=== PATIENT | female | born 1945 | race Caucasian/White ===

== ENCOUNTER 2017-01-15 12:48 | Emergency (ER) | payer MEDICARE ==
[~2017-01-15] VITALS: Ht 167.6 cm; Wt 72.1 kg
[~2017-01-15 12:48] MED LIST: AMLO10TA2 PO; ASPI81TA50 PO; COLE3.754 PO; METO25TA4 PO; NITR0.4T SL; OMEP40CA5 PO; POLY2500 MC; SUCR1ORA PO
[2017-01-15] MEDS ORDERED: DIAZEPAM 10 MG/2 ML DISP.SYRIN. IV ONE (13:45)
[2017-01-15] MEDS ORDERED: FENTANYL PF 100 MCG/2 ML VIAL. IV ONE (13:45)
[2017-01-15 13:47] LABS: BASO % 0 % (0-3); EOS # 0.4 x10^3/uL (0.0-0.7); EOS % 3 % (0-3); HEMATOCRIT 44.4 % (36.0-47.0); HEMOGLOBIN 14.8 g/dL (12.0-15.5); LYMPH # 4.3 x10^3/uL (1.0-4.8); LYMPH % 36 % (24-48); MEAN CORPUSCULAR HEMOGLOBIN 32 pg (25-35); MEAN CORPUSCULAR HGB CONC 33 g/dL (31-37); MEAN CORPUSCULAR VOLUME 95 fL (79-100); MONO # 0.9 x10^3/uL (0.0-1.1); MONO % 8 % (0-9); NEUT # 6.2 x10^3uL (1.8-7.7); NEUT % 53 % (31-73); PLATELET COUNT 331 x10^3/uL (140-400); RED BLOOD COUNT 4.67 x10^6/uL (3.50-5.40); RED CELL DISTRIBUTION WIDTH 12.8 % (11.5-14.5); WHITE BLOOD COUNT 11.8 x10^3/uL (4.0-11.0)
[2017-01-15 14:01] LABS: POTASSIUM ISTAT 3.1 mmol/L (3.5-5.0)
[2017-01-15] MEDS ORDERED: CLON0.5T3 PO (14:19)
[2017-01-15] MEDS ORDERED: LIDO700A4 TP (14:19)
[2017-01-15] MEDS ORDERED: POTASSIUM CHLORIDE 20 MEQ TABLET.ER. PO ONE (14:30)
--- NOTE | 2017-01-15 14:32 | ED.ADGEN ---
Past History Past Medical History: Anxiety, High Cholesterol, Hypertension, Other Past Surgical History: Appendectomy, Hysterectomy Alcohol Use: None Drug Use: None Adult General Chief Complaint Chief Complaint back pain, hip pain, tremors HPI HPI Patient is a 71 year old female who presents with increasing chronic back and hip pain with uncontrollable tremors of extremities since last night. Pt reports the symptoms started after taking percocet for her increased chronic pain. Pt Normally "doesn't like to" take the narcotic pain meds. She has known DJD and bulging discs. She had EMG studies by Dr. Villegas last week, MRIs of spine in November. See's pain management, had doctor appointment at 2pm but said she couldn't wait and came to ED. She had a similar episode of tremors some time ago after taking Tramadol. Pain is reportedly the same pain, but just worsened from baseline. No new falls or trauma Review of Systems Review of Systems Constitutional: Denies fever or chills [] Eyes: Denies change in visual acuity, redness, or eye pain [] HENT: Denies nasal congestion or sore throat [] Respiratory: Denies cough or shortness of breath [] Cardiovascular: No additional information not addressed in HPI [] GI: Denies abdominal pain, nausea, vomiting, bloody stools or diarrhea [] : Denies dysuria or hematuria [] Musculoskeletal: per hpi Integument: Denies rash or skin lesions [] Neurologic: Denies headache, focal weakness or sensory changes , reports moving tremors Endocrine: Denies polyuria or polydipsia [] Current Medications Current Medications Current Medications Medications (Trade) Dose Ordered Sig/Gena Start Time Stop Time Status Last Admin Dose Admin Diazepam (Valium) 5 mg 1X ONCE 01/15/17 13:45 01/15/17 13:46 DC 01/15/17 13:38 5 MG Fentanyl Citrate (Fentanyl 2ml Vial) 50 mcg 1X ONCE 01/15/17 13:45 01/15/17 13:46 DC 01/15/17 13:38 50 MCG Potassium Chloride (Klor-Con) 40 meq 1X ONCE 01/15/17 14:30 01/15/17 14:32 DC 01/15/17 15:16 40 MEQ Allergies Allergies Allergies Coded Allergies Type Severity Reaction Last Updated Verified morphine Allergy Intermediate Rash 11/22/15 Yes Physical Exam Physical Exam Constitutional: Well developed, well nourished, very anxious, intermittent rhythmic movements of upper extremities, R>L, easily distractable and it stops. HENT: Normocephalic, atraumatic, bilateral external ears normal, oropharynx moist, no oral exudates, nose normal. [] Eyes: PERRLA, EOMI, conjunctiva normal, no discharge. [] Neck: Normal range of motion, no tenderness, supple, no stridor. [] Cardiovascular:Heart rate regular with regular rhythm Lungs & Thorax: Bilateral breath sounds clear to auscultation, no wheeze Abdomen: Bowel sounds normal, soft, no tenderness, no masses, no pulsatile masses. [] Skin: Warm, dry, no erythema, no rash. [] Back: No focal tenderness no erythema or fluctance, no increased warmth Extremities: ttp in R hip, no cyanosis, no clubbing, ROM intact, no edema. remaining extremities nontender, nondeformed. Neurologic: Alert and oriented X 3, normal motor function, normal sensory function, no focal deficits noted, cranial nerves II-XII intact, pt able to lift both arms and hold steady for 10 seconds, unable to lift either leg off the bed. Normal sensation in all distal extremities. Psychologic: anxious, cooperative Current Patient Data Vital Signs Vital Signs Date Time Temp Pulse Resp B/P Pulse Ox O2 Delivery O2 Flow Rate FiO2 01/15/17 14:39 84 18 153/82 93 Room Air 01/15/17 13:04 98.0 Lab Results Laboratory Tests Test 01/15/17 13:30 01/15/17 13:45 White Blood Count 11.8x10^3/uL (4.0-11.0) H Red Blood Count 4.67x10^6/uL (3.50-5.40) Hemoglobin 14.8g/dL (12.0-15.5) Hematocrit 44.4% (36.0-47.0) Mean Corpuscular Volume 95fL (79-100) Mean Corpuscular Hemoglobin 32pg (25-35) Mean Corpuscular Hemoglobin Concent 33g/dL (31-37) Red Cell Distribution Width 12.8% (11.5-14.5) Platelet Count 331x10^3/uL (140-400) Neutrophils (%) (Auto) 53% (31-73) Lymphocytes (%) (Auto) 36% (24-48) Monocytes (%) (Auto) 8% (0-9) Eosinophils (%) (Auto) 3% (0-3) Basophils (%) (Auto) 0% (0-3) Neutrophils # (Auto) 6.2x10^3uL (1.8-7.7) Lymphocytes # (Auto) 4.3x10^3/uL (1.0-4.8) Monocytes # (Auto) 0.9x10^3/uL (0.0-1.1) Eosinophils # (Auto) 0.4x10^3/uL (0.0-0.7) Basophils # (Auto) 0.0x10^3/uL (0.0-0.2) Magnesium Level 1.9mg/dL (1.8-2.4) POC Hemoglobin 15.0gm/dL POC Hematocrit 44% POC Sodium 142mmol/L (135-145) POC Potassium 3.1mmol/L (3.5-5.0) L POC Chloride 101mmol/L (98-110) POC Total CO2 21mmol/L (23-32) L Anion Gap 23mmol/L (6-14) H POC Blood Urea Nitrogen 16mg/dL (8-26) POC Creatinine 1.0mg/dL (0.5-1.4) Glucose Level 113mg/dL (60-99) H POC Ionized Calcium (Skylar) 1.15mmol/L (1.13-1.32) EKG EKG [] Radiology/Procedures Radiology/Procedures reviewed past radiograph results[] Course & Med Decision Making Course & Med Decision Making Pertinent Labs and Imaging studies reviewed. (See chart for details) Pt given IV valium and fentyl with significant resolve of her tremors and improvement of pain. I contacted Dr. Walker for november MRI results, no severe stenosis reports, mild stenosis of L4-5, multiple areas of DJD and bulging discs. He explained that she gets ativan and percocet monthly,but takes little of the percocet for her pain. H/o not tolerating tramadol and hydrocodone in the past. I contacted Dr. Villegas, who stated the EMG was negative and symptoms are consistent with functional movement disorder. Recommends clonazepam and f/u with pain doctor. Pt has f/u in February with pain doc. I recommended Lidoderm patches in the area with the most pain, clonazepan , NOT to take this along with ativan (which she has not been taking). Return precautions given and pt voiced improvement. 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 CHIVO CLOUD MD Jan 15, 2017 14:32
[2017-01-15 14:39] VITALS: BP 153/82
== END 2017-01-15 14:35 | disposition home or self-care (01) ==
LOC: ER 12:48
DX: G25.89 Other specified extrapyramidal and movement disorders (principal); M17.11 Unilateral primary osteoarthritis, right knee; M47.9 Spondylosis, unspecified; E78.00 Pure hypercholesterolemia, unspecified; F41.9 Anxiety disorder, unspecified; G89.29 Other chronic pain; I10 Essential (primary) hypertension; Z88.5 Allergy status to narcotic agent
CPT/HCPCS: 36415; 80047; 83735; 85027; 96374; 96375; 99284; J3010

== ENCOUNTER → 2017-05-03 | Outpatient (CLI) | payer MEDICARE ==
[~2017-05-03] MED LIST changes: +CLON0.5T3 PO; +COLE3.753 PO; -COLE3.754 PO; +LIDO700A4 TP; -SUCR1ORA PO; +SUCR1ORA11 PO
--- NOTE | 2017-05-04 14:24 | RAD ---
DATE: 05/03/2017 EXAM: MAMMO NONI SCREENING BILATERAL HISTORY: Routine screening COMPARISON: 04/30/2016 This study was interpreted with the benefit of Computerized Aided Detection (CAD). The breast parenchyma shows scattered fibroglandular densities. Breast parenchyma level B. FINDINGS: 2-D and 3-D tomosynthesis imaging was performed in CC and MLO projections. No new or enlarging breast densities are seen. Benign type calcifications are again noted. No suspicious microcalcifications have developed. IMPRESSION: Stable mammograms without evidence of malignancy. BI-RADS CATEGORY: 2 BENIGN FINDING(S) RECOMMENDED FOLLOW-UP: 12M 12 MONTH FOLLOW-UP PQRS compliance statement: Patient information was entered into a reminder system with a target due date for the next mammogram. Mammography is a sensitive method for finding small breast cancers, but it does not detect them all and is not a substitute for careful clinical examination. A negative mammogram does not negate a clinically suspicious finding and should not result in delay in biopsying a clinically suspicious abnormality. "Our facility is accredited by the [employer] Mammography Program."
== END | disposition home or self-care (01) ==
LOC: MAMMO 13:15
PROVIDERS: ATTEND Family Medicine
DX: Z12.31 Encounter for screening mammogram for malignant neoplasm of breast (principal)
CPT/HCPCS: 77063; G0202; 77067

== ENCOUNTER → 2018-02-02 | Outpatient (CLI) | payer MEDICARE ==
[~2018-02-02] MED LIST changes: +BUPIVACAINE MPF 0.5% 30 ML VIAL. ONE; +LIDOCAINE 1% PF 30 ML VIAL. ONE; +methylPREDNISolone ACETATE 80 MG/ML VIAL. ONE
== END | disposition home or self-care (01) ==
LOC: SURG 14:19
PROVIDERS: ATTEND Anesthesiology Pain Medicine
DX: M47.816 Spondylosis without myelopathy or radiculopathy, lumbar region (principal); Z88.5 Allergy status to narcotic agent; Z72.89 Other problems related to lifestyle; I10 Essential (primary) hypertension; M19.90 Unspecified osteoarthritis, unspecified site; Z90.49 Acquired absence of other specified parts of digestive tract; Z98.890 Other specified postprocedural states; Z90.710 Acquired absence of both cervix and uterus; Z96.642 Presence of left artificial hip joint; K21.9 Gastro-esophageal reflux disease without esophagitis
CPT/HCPCS: 64493; 64494; J1040; J2001; J3490

== ENCOUNTER 2018-06-02 16:57 | Emergency (ER) | payer MEDICARE ==
[~2018-06-02] VITALS: Ht 165.1 cm; Wt 78.9 kg
[~2018-06-02 16:57] MED LIST changes: -BUPIVACAINE MPF 0.5% 30 ML VIAL. ONE; +CLON0.5T11 PO; -CLON0.5T3 PO; -LIDOCAINE 1% PF 30 ML VIAL. ONE; -methylPREDNISolone ACETATE 80 MG/ML VIAL. ONE
[2018-06-02] MEDS ORDERED: HALOPERIDOL LACT 5 MG/ML VIAL. IM ONE (17:15)
[2018-06-02] MEDS ORDERED: LORazepam 2 MG/ML VIAL IV ONE (17:15)
[2018-06-02] MEDS ORDERED: HALOPERIDOL LACT 5 MG/ML VIAL. ONE (17:16)
[2018-06-02] MEDS ORDERED: LORazepam 2 MG/ML VIAL ONE (17:16)
--- NOTE | 2018-06-02 17:29 | PHYS DOC ---
Past History Past Medical History: Anxiety, High Cholesterol, Hypertension, Other Past Surgical History: Appendectomy, Hysterectomy Alcohol Use: None Drug Use: None Adult General Chief Complaint Chief Complaint: shaking HPI HPI 72-year-old female presenting the emergency department after having a shaking sensation for the past 2 hours. They report this as seizure activity. Upon triage the patient is awake and alert. She responds verbally and answers questions while shaking generalized. She follows commands. She has been worked up for this condition over the past 2 weeks in clinic and has seen Dr. Abdi wilde without any obvious cause for the patient's shaking. She has had medications changed and is currently awaiting a medication review by Dr. Walker. She had a history of a CT 2 weeks ago which was reportedly normal. She denies any fevers chills nausea vomiting. She denies any pain in her chest or abdomen. Review of Systems Review of Systems Review of systems is negative for chest pain shortness of breath abdominal pain nausea vomiting. She denies numbness weakness or tingling in her extremities. She denies facial droop, slurred speech or difficulty walking. All other systems were reviewed and found to be within normal limits, except as documented in this note. Current Medications Current Medications Current Medications Medications (Trade) Dose Ordered Sig/Gena Start Time Stop Time Status Last Admin Dose Admin Haloperidol Lactate (Haldol) 5 mg STK-MED ONCE 06/02/18 17:16 06/02/18 17:17 DC Lorazepam (Ativan) 2 mg STK-MED ONCE 06/02/18 17:16 06/02/18 17:19 DC Allergies Allergies Allergies Coded Allergies Type Severity Reaction Last Updated Verified morphine Allergy Intermediate Rash 11/22/15 Yes Physical Exam Physical Exam Constitutional: Well developed, well nourished, no acute distress, non-toxic appearance. [] HENT: Normocephalic, atraumatic, bilateral external ears normal, oropharynx moist, no oral exudates, nose normal. [] Eyes: PERRLA, EOMI, conjunctiva normal, no discharge. Neck: Normal range of motion, no tenderness, supple, no stridor. [] Cardiovascular:Heart rate regular rhythm, no murmur Lungs & Thorax: Bilateral breath sounds clear to auscultation [] Abdomen: Bowel sounds normal, soft, no tenderness, no masses, no pulsatile masses. Skin: Warm, dry, no erythema, no rash. [] Back: No tenderness, no CVA tenderness. [] Extremities: No tenderness, no cyanosis, no clubbing, ROM intact, no edema. [] Neurologic: Mental status: Awake oriented and alert x3 Cranial nerves: Extraocular movements intact, eyebrows carl bilaterally, smile symmetric, uvula elevation nl, shoulder shrug intact bilaterally, tongue protrusion normal DTRs: 2+ Sensation: equal and normal in all extremities. pt is observed to voluntarily stop shaking when answering questing. She follow commands and answers questions appropriately. Strength: 5/5 in upper and lower extremities bilaterally Psychologic: Affect normal, judgement normal, mood normal. EKG EKG [] Radiology/Procedures Radiology/Procedures [] Course & Med Decision Making Course & Med Decision Making Pertinent Labs and Imaging studies reviewed. (See chart for details) 72-year-old female presenting to the emergency department today after having these shaking episodes while maintaining fully alert level of consciousness and able to answer questions. Vital signs, she is afebrile. Heart rate is mildly elevated in the 100. She denies any pain. Neurologic exam shows good strength in her upper and lower extremities with this symmetric smile. Speech is clear. Pupils are equal and reactive without any cranial nerve defects. We will give the patient a small dose of Haldol and Ativan to attempt to help calm down her jerking motions. Head CT ordered along with blood work. Patient was signed out at 6 PM. Pending tests include blood work and head CT. Patient signed out to Dr. Cervantes with plan to follow up on imaging and blood work and likely admit the patient to [facility] for neurology consultation. Dragon Disclaimer Dragon Disclaimer This electronic medical record was generated, in whole or in part, using a voice recognition dictation system. Departure Departure: Impression: Primary Impression: Episode of shaking Referrals: BRENDA WALKER MD (PCP) SASCHA KAMARA MD Jun 02, 2018 17:29
[2018-06-02 17:54] LABS: BASO # 0.1 x10^3/uL (0.0-0.2); BASO % 0 % (0-3); EOS # 0.5 x10^3/uL (0.0-0.7); EOS % 4 % (0-3); HEMATOCRIT 38.5 % (36.0-47.0); HEMOGLOBIN 13.1 g/dL (12.0-15.5); LYMPH # 3.8 x10^3/uL (1.0-4.8); LYMPH % 28 % (24-48); MEAN CORPUSCULAR HEMOGLOBIN 33 pg (25-35); MEAN CORPUSCULAR HGB CONC 34 g/dL (31-37); MEAN CORPUSCULAR VOLUME 96 fL (79-100); MONO # 1.1 x10^3/uL (0.0-1.1); MONO % 9 % (0-9); NEUT # 7.9 x10^3uL (1.8-7.7); NEUT % 60 % (31-73); PLATELET COUNT 350 x10^3/uL (140-400); RED BLOOD COUNT 4.01 x10^6/uL (3.50-5.40); RED CELL DISTRIBUTION WIDTH 13.5 % (11.5-14.5); WHITE BLOOD COUNT 13.4 x10^3/uL (4.0-11.0)
[2018-06-02 18:02] LABS: ALBUMIN 3.9 g/dL (3.4-5.0); ALBUMIN/GLOBULIN RATIO 1.3 (1.0-1.7); CREATININE 1.3 mg/dL (0.6-1.0); GFR 40.2; POTASSIUM 4.2 mmol/L (3.5-5.1); TOTAL BILIRUBIN 0.3 mg/dL (0.2-1.0)
--- NOTE | 2018-06-02 18:21 | RAD ---
PQRS Compliance statement: One or more of the following individualized dose reduction techniques were utilized for this examination: 1. Automated exposure control. 2. Adjustment of the mA and/or kV according to patient size. 3. Use of iterative reconstruction technique. Indication:JERKING OF EXTREMITIES, UNCONTROLLED PER PATIENT TECHNIQUE: CT head without IV contrast COMPARISON:None FINDINGS: No pathologic extra-axial or intra-axial fluid collection. The ventricles and basal cisterns are within normal limits. No acute intracranial bleed. No focal loss of samayoa-white differentiation. Orbits within normal limits. No acute calvarial fractures. Visualized paranasal sinuses and mastoid air cells are clear. IMPRESSION: No acute intracranial process. If concern for acute ischemic stroke is high, please consider MRI brain. Critical findings were identified on 06/02/2018 6:12 PM, read back and verified with [facility] staff on 06/02/2018 6:[address] Osmani Craig DO. Electronically signed by: Osmani Craig DO (06/02/2018 6:18 PM) [facility]
[2018-06-02 21:09] LABS: AMPHETAMINE/METHAMPHETAMINE NEG (NEG); BARBITURATES NEG (NEG); BENZODIAZEPINES NEG (NEG); CANNABINOIDS POS (NEG); COCAINE NEG (NEG); METHADONE NEG (NEG); OPIATES NEG (NEG); PHENCYCLIDINE NEG (NEG)
[2018-06-02 21:59] VITALS: BP 100/51
== END 2018-06-02 22:11 | disposition short-term general hospital (02) ==
LOC: ER 16:57
DX: R25.1 Tremor, unspecified (principal); F41.9 Anxiety disorder, unspecified; E78.00 Pure hypercholesterolemia, unspecified; I10 Essential (primary) hypertension; Z88.5 Allergy status to narcotic agent
CPT/HCPCS: 36415; 70450; 80053; 80307; 85025; 96372; 96374; 99285; J1630; J2060; P9612; G0479

== ENCOUNTER → 2018-08-16 | Outpatient (CLI) | payer MEDICARE ==
[~2018-08-16] MED LIST changes: -AMLO10TA2 PO; +AMLO10TA6 PO
--- NOTE | 2018-08-17 09:22 | RAD ---
DATE: 08/16/2018 EXAM: DIGITAL SCREEN BILAT W/CAD HISTORY: Routine screening COMPARISON: 05/03/2017 This study was interpreted with the benefit of Computerized Aided Detection (CAD). Breast Density: SCATTERED The breast parenchyma shows scattered fibroglandular densities. Breast parenchyma level B. FINDINGS: No new or enlarging breast densities are seen. Benign type calcification is again noted. No suspicious microcalcifications have developed. IMPRESSION: Stable mammograms without evidence of malignancy. BI-RADS CATEGORY: 2 BENIGN FINDING(S) RECOMMENDED FOLLOW-UP: 12M 12 MONTH FOLLOW-UP PQRS compliance statement: Patient information was entered into a reminder system with a target due date for the next mammogram. Mammography is a sensitive method for finding small breast cancers, but it does not detect them all and is not a substitute for careful clinical examination. A negative mammogram does not negate a clinically suspicious finding and should not result in delay in biopsying a clinically suspicious abnormality. "Our facility is accredited by the [employer] Mammography Program."
== END | disposition home or self-care (01) ==
LOC: MAMMO 10:38
PROVIDERS: ATTEND Family Medicine
DX: Z12.31 Encounter for screening mammogram for malignant neoplasm of breast (principal)
CPT/HCPCS: 77067

== ENCOUNTER 2018-10-16 16:18 | Emergency (ER) | payer MEDICARE ==
[2018-10-16 16:32] VITALS: BP 127/78
[2018-10-16] MEDS ORDERED: oxyCODONE/APAP 5/325 1 TAB TABLET ONE (17:00)
[2018-10-16] MEDS ORDERED: oxyCODONE/APAP 5/325 1 TAB TABLET PO ONE (17:00)
--- NOTE | 2018-10-16 17:09 | PHYS DOC ---
Past History Past Medical History: Anxiety, Constipation, Depression, GERD, High Cholesterol , Hypertension Past Surgical History: Cholecystectomy, Hip Replacement, Hysterectomy, Knee Replacement Alcohol Use: None Drug Use: None Adult General Chief Complaint Chief Complaint: MULTIPLE TRAUMA/FALL HPI HPI Patient is a 72 year old female who presents with complaining of a fall at the her tub this morning after she lost her balance and hit her left lower rib against the handlebar without head injury or loss of consciousness. She complaining of pain in left side of chest since this morning that getting worse with movement and taking deep breaths. Patient states she cannot take a deep breath because of the pain but denies shortness of breath, fever and chills, cough and congestion. Review of Systems Review of Systems Constitutional: Denies fever or chills [] Eyes: Denies change in visual acuity, redness, or eye pain [] HENT: Denies nasal congestion or sore throat [] Respiratory: Denies cough or shortness of breath [] Cardiovascular: No additional information not addressed in HPI [] GI: Denies abdominal pain, nausea, vomiting, bloody stools or diarrhea [] : Denies dysuria or hematuria [] Musculoskeletal: Denies back pain or joint pain [] Integument: Denies rash or skin lesions [] Neurologic: Denies headache, focal weakness or sensory changes [] Endocrine: Denies polyuria or polydipsia [] All other systems were reviewed and found to be within normal limits, except as documented in this note. Current Medications Current Medications Current Medications Medications (Trade) Dose Ordered Sig/Gena Start Time Stop Time Status Last Admin Dose Admin Oxycodone/ Acetaminophen (Percocet 5/325) 1 tab STK-MED ONCE 10/16/18 17:00 10/16/18 17:01 DC Allergies Allergies Allergies Coded Allergies Type Severity Reaction Last Updated Verified morphine Allergy Intermediate Rash 11/22/15 Yes Physical Exam Physical Exam Constitutional: Well developed, well nourished, mild distress, non-toxic appearance. [] HENT: Normocephalic, atraumatic Eyes: PERRLA, EOMI, conjunctiva normal, no discharge. [] Neck: Normal range of motion, no tenderness, supple, no stridor. [] Cardiovascular:Heart rate regular rhythm, no murmur [] Lungs & Thorax: Bilateral breath sounds clear to auscultation , left lateral chest wall tenderness without deformity or ecchymosis or contusion or subcutaneous emphysema. Abdomen: Bowel sounds normal, soft, no tenderness, no masses, no pulsatile masses. [] Skin: Warm, dry, no erythema, no rash. [] Back: No tenderness, no CVA tenderness. [] Extremities: No tenderness, no cyanosis, no clubbing, ROM intact, no edema. [] Neurologic: Alert and oriented X 3, normal motor function, normal sensory function, no focal deficits noted. [] Psychologic: Affect normal, judgement normal, mood normal. [] Current Patient Data Vital Signs Vital Signs Date Time Temp Pulse Resp B/P (MAP) Pulse Ox O2 Delivery O2 Flow Rate FiO2 10/16/18 16:32 98.1 87 16 95 Room Air EKG EKG [] Radiology/Procedures Radiology/Procedures [address] [address] IMAGING REPORT Signed PATIENT: JUSTO FRANKLIN ACCOUNT: [id number] : 1945 LOCATION: ER AGE: 72 SEX: F EXAM STATUS: REG ER ORD. PHYSICIAN: KELLY GODOY MD REASON: fall PROCEDURE: RIBS LEFT AND PA CHEST EXAM: Chest and left ribs, 3 views. HISTORY: Pain. COMPARISON: None. FINDINGS: A frontal view of the chest and 3 views of the left ribs are obtained. There is no infiltrate, pleural effusion or pneumothorax. There is bilateral basilar atelectasis. The heart is normal in size. There is slight deformity of the lateral left seventh rib. IMPRESSION: 1. Slight deformity of the lateral left seventh rib. This may be a healed fracture or acute nondisplaced fracture, only seen in a single projection. Correlate for point tenderness in this location. 2. Bilateral lower lobe atelectasis. Electronically signed by: Jocelin Zheng MD (10/16/2018 5:24 PM) [facility] DICTATED AND SIGNED BY: JOCELIN ZHENG MD DATE: 10/16/18 7932 CC: BRENDA SANCHEZ MD; KELLY GODOY MD ~ Course & Med Decision Making Course & Med Decision Making Pertinent Imaging studies reviewed. (See chart for details) Evaluation of patient in ER showed 72-year-old female patient with a fall and injury to his lower chest this morning. X-ray showed nondisplaced fracture of rib #7 in left site. She treated with oxycodone in ER (the only medication the patient is able to take for her pain) and incentive spirometer was provided and patient psychiatric to follow up with her primary care physician. Dragon Disclaimer Dragon Disclaimer This electronic medical record was generated, in whole or in part, using a voice recognition dictation system. Departure Departure: Impression: Primary Impression: Fracture, ribs Additional Impression: Fall at home Disposition: HOME, SELF-CARE (at 1750) Condition: IMPROVED Referrals: BRENDA SANCHEZ MD (PCP) Patient Instructions: Incentive Spirometer, Rib Fracture Additional Instructions: Try to cough and take deep breaths Follow-up with your primary care physician in 2-3 days Return to ER if not getting better Scripts Oxycodone Hcl/Acetaminophen (PERCOCET 5-325 MG TABLET ) 1 Each Tablet 1 TAB PO PRN Q6HRS PRN for PAIN, #20 TAB Prov: KELLY GODOY MD 10/16/18 Problem Qualifiers KELLY GODOY MD Oct 16, 2018 17:09
[2018-10-16] MEDS ORDERED: diphenhydrAMINE HCL 25 MG CAPSULE PO ONE (17:15)
--- NOTE | 2018-10-16 17:28 | RAD ---
EXAM: Chest and left ribs, 3 views. HISTORY: Pain. COMPARISON: None. FINDINGS: A frontal view of the chest and 3 views of the left ribs are obtained. There is no infiltrate, pleural effusion or pneumothorax. There is bilateral basilar atelectasis. The heart is normal in size. There is slight deformity of the lateral left seventh rib. IMPRESSION: 1. Slight deformity of the lateral left seventh rib. This may be a healed fracture or acute nondisplaced fracture, only seen in a single projection. Correlate for point tenderness in this location. 2. Bilateral lower lobe atelectasis. Electronically signed by: Jocelin Rojas MD (10/16/2018 5:24 PM) [facility]
[2018-10-16] MEDS ORDERED: OXYC1TAB15 PO (17:45)
== END 2018-10-16 18:22 | disposition home or self-care (01) ==
LOC: ER 16:18
DX: S22.32XA Fracture of one rib, left side, initial encounter for closed fracture (principal); F41.9 Anxiety disorder, unspecified; F32.9 Major depressive disorder, single episode, unspecified; K21.9 Gastro-esophageal reflux disease without esophagitis; E78.00 Pure hypercholesterolemia, unspecified; Z88.5 Allergy status to narcotic agent; W18.2XXA Fall in (into) shower or empty bathtub, initial encounter; Y93.89 Activity, other specified; Y92.098 Other place in other non-institutional residence as the place of occurrence of the external cause; Y99.8 Other external cause status
CPT/HCPCS: 71101; 99283

== ENCOUNTER → 2019-08-17 | Outpatient (CLI) | payer MEDICARE ==
[~2019-08-17] MED LIST changes: -AMLO10TA6 PO; +AMLO10TA8 PO; -CLON0.5T11 PO; +CLON0.5T4 PO; -NITR0.4T SL; +NITR0.4T24 SL; +OMEP40CA45 PO; -OMEP40CA5 PO; +OXYC1TAB15 PO
--- NOTE | 2019-08-17 16:12 | RAD ---
DATE: 08/17/2019. EXAM: DIGITAL SCREEN BILAT W/CAD. HISTORY: Routine mammographic screening. COMPARISON: 08/16/2018. This study was interpreted with the benefit of Computerized Aided Detection (CAD). FINDINGS: Breast Density: HETERO The breast parenchyma is heterogenously dense, which could reduce sensitivity of mammography. Breast parenchyma level C.. There is a focus of architectural distortion superior to the nipple line on the left MLO view. Its correlate on the CC projection is unclear. See annotations. Scattered and coarse calcifications on the right are unremarkable. There is no suspicious finding on the right. BI-RADS CATEGORY: 0 INCOMPLETE: NEEDS ADDITIONAL IMAGING EVALUATION AND/OR PRIOR MAMMOGRAMS FOR COMPARISON.. RECOMMENDED FOLLOW-UP: ADD ADDITIONAL IMAGING. 1. Proximal compression and sonography of the focus of architectural distortion slightly superiorly on the left. See annotations. PQRS compliance statement: Patient information was entered into a reminder system with a target due date (now) for the next mammogram. Mammography is a sensitive method for finding small breast cancers, but it does not detect them all and is not a substitute for careful clinical examination. A negative mammogram does not negate a clinically suspicious finding and should not result in delay in biopsying a clinically suspicious abnormality. "Our facility is accredited by the [employer] Mammography Program."
== END | disposition home or self-care (01) ==
LOC: MAMMO 10:34
PROVIDERS: ATTEND Family Medicine
DX: Z12.31 Encounter for screening mammogram for malignant neoplasm of breast (principal)
CPT/HCPCS: 77067

== ENCOUNTER → 2019-08-31 | Outpatient (CLI) | payer MEDICARE ==
--- NOTE | 2019-08-31 15:14 | RAD ---
DATE: 08/31/2019. EXAM: DIGITAL DIAGNOSTIC LT, BREAST LEFT. HISTORY: Architectural distortion on mammographic screening. Additional imaging is requested. COMPARISON: 08/17/2019. FINDINGS: Breast Density: HETERO The breast parenchyma is heterogenously dense, which could reduce sensitivity of mammography. Breast parenchyma level C.. The region of concern superior to the left nipple is no longer identified on spot compression. There is no suspicious mammographic finding. On today's sonography, only normal parenchyma is seen. There is no suspicious sonographic finding. BI-RADS CATEGORY: 2 BENIGN FINDING(S). RECOMMENDED FOLLOW-UP: 12M 12 MONTH FOLLOW-UP. PQRS compliance statement: Patient information was entered into a reminder system with a target due date 08/17/2020 for the next mammogram. Mammography is a sensitive method for finding small breast cancers, but it does not detect them all and is not a substitute for careful clinical examination. A negative mammogram does not negate a clinically suspicious finding and should not result in delay in biopsying a clinically suspicious abnormality. "Our facility is accredited by the [employer] Mammography Program."
== END | disposition home or self-care (01) ==
LOC: MAMMO 12:47
PROVIDERS: ATTEND Family Medicine
DX: R92.2 Inconclusive mammogram (principal)
CPT/HCPCS: 76641; 77065

== ENCOUNTER 2019-12-25 16:30 | Inpatient (IN) | payer MEDICARE ==
[~2019-12-25] VITALS: Ht 165.1 cm; Wt 82.4 kg
[~2019-12-25 16:30] MED LIST changes: -SUCR1ORA11 PO; +SUCR1ORA14 PO
[2019-12-25 17:18] LABS: BACTERIA,URINE 0 /HPF (0-FEW); BILIRUBIN,URINE NEG (NEG); CLARITY,URINE CLEAR; COLOR,URINE AMBER; GLUCOSE,URINE NEG (NEG); NITRITE,URINE NEG (NEG); RBC,URINE OCC /HPF (0-2); UROBILINOGEN,URINE 0.2 mg/dL (0.2 mg/dL)
[2019-12-25 17:19] LABS: SQUAMOUS EPITHELIAL CELL,UR MOD /LPF
[2019-12-25] MEDS ORDERED: ONDANSETRON PF 4 MG/2 ML VIAL. IVP ONE (17:30)
[2019-12-25] MEDS ORDERED: IV NORMAL SALINE 1,000ML 1,000 ML IV ONE (17:30)
--- NOTE | 2019-12-25 17:30 | PHYS DOC ---
Past History Past Medical History: Hypertension, Seizure, Other Additional Past Medical Histor: BACK PROBLEMS (DONALDO GUILLERMO DO) Past Surgical History: Appendectomy, Hysterectomy, Tonsillectomy, Other Additional Past Surgical Histo: HIP SURGERY, KNEE SUREGERY (DONALDO GUILLERMO DO) Alcohol Use: None Drug Use: None (DONALDO GUILLERMO DO) Adult General Chief Complaint Chief Complaint: ABDOMINAL PAIN HPI HPI Patient is a 74-year-old female who presents with complaint of left lower quadrant and suprapubic abdominal pain x2 hours that is "not letting up." No medications given prior to arrival. Patient rates her pain at 9/10. She has no history of intra-abdominal pathology and she denies nausea vomiting diarrhea constipation fever or chills. (DONALDO GUILLERMO DO) Review of Systems Review of Systems All other systems were reviewed and found to be within normal limits, except as documented in this note. (DONALDO GUILLERMO DO) Current Medications Current Medications Current Medications Medications (Trade) Dose Ordered Sig/Gena Start Time Stop Time Status Last Admin Dose Admin Fentanyl Citrate (Fentanyl 2ml Vial) 50 mcg 1X ONCE 12/25/19 17:30 12/25/19 17:31 Ondansetron HCl (Zofran) 4 mg 1X ONCE 12/25/19 17:30 12/25/19 17:31 Sodium Chloride 1,000 ml @ 1,000 mls/hr 1X ONCE 12/25/19 17:30 12/25/19 18:29 (DONALDO GUILLERMO DO) Allergies Allergies Allergies Coded Allergies Type Severity Reaction Last Updated Verified morphine Allergy Intermediate Rash 12/25/19 Yes (DONALDO GUILLERMO DO) Physical Exam Physical Exam Constitutional: Well developed, well nourished, no acute distress, non-toxic appearance. [] HENT: Normocephalic, atraumatic, bilateral external ears normal, oropharynx moist, no oral exudates, nose normal. [] Eyes: PERRLA, EOMI, conjunctiva normal, no discharge. [] Neck: Normal range of motion, no tenderness, supple, no stridor. [] Cardiovascular:Heart rate regular rhythm, no murmur [] Lungs & Thorax: Bilateral breath sounds clear to auscultation [] Abdomen: Bowel sounds normal, soft, TTP LLQ, no masses, no pulsatile masses. [] Skin: Warm, dry, no erythema, no rash. [] Back: No tenderness, no CVA tenderness. [] Extremities: No tenderness, no cyanosis, no clubbing, ROM intact, no edema. [] Neurologic: Alert and oriented X 3, normal motor function, normal sensory funct ion, no focal deficits noted. [] Psychologic: Affect normal, judgement normal, mood normal. [] (DONALDO GUILLERMO DO) Current Patient Data Vital Signs Vital Signs Date Time Temp Pulse Resp B/P (MAP) Pulse Ox O2 Delivery O2 Flow Rate FiO2 12/25/19 16:51 98.2 76 20 162/61 (94) 95 Lab Results Laboratory Tests Test 12/25/19 16:50 Urine Collection Type Unknown Urine Color Zoya Urine Clarity Clear Urine pH 5.5 Urine Specific [place] >=1.030 Urine Protein Neg (NEG-TRACE) Urine Glucose (UA) Neg mg/dL (NEG) Urine Ketones (Stick) Trace mg/dL (NEG) Urine Blood Neg (NEG) Urine Nitrite Neg (NEG) Urine Bilirubin Neg (NEG) Urine Urobilinogen Dipstick 0.2 mg/dL (0.2 mg/dL) Urine Leukocyte Esterase Trace (NEG) Urine RBC Occ /HPF (0-2) Urine WBC 1-4 /HPF (0-4) Urine Squamous Epithelial Cells Mod /LPF Urine Bacteria 0 /HPF (0-FEW) Urine Mucus Mod /LPF (DONALDO GUILLERMO DO) EKG EKG [] (DONALDO GUILLERMO DO) Radiology/Procedures Radiology/Procedures [] (DONALDO GUILLERMO DO) Impressions: CT abdomen pelvis with contrast dated 12/25/2019. Comparison made to 01/18/2013. Clinical data indication: Left lower quadrant pain. TECHNIQUE: Contiguous axial imaging of the abdomen and pelvis performed after the administration of intravenous contrast. One or more of the following individualized dose reduction techniques were utilized for this examination: 1. Automated exposure control 2. Adjustment of the mA and/or kV according to patient size 3. Use of iterative reconstruction technique. FINDINGS: Limited images of lung bases show patchy and linear opacity in the left lower lobe and lingula and right middle lobe, likely scar or atelectasis. Heart size is mildly enlarged. No pleural or pericardial effusion. Small hiatal hernia. Liver, spleen, pancreas, adrenal glands and kidneys are unremarkable. No hydronephrosis. The gallbladder is unremarkable. There is a well-circumscribed low-density focus within the inferior left lobe liver consistent with cyst. Partially opacified GI tract normal in caliber and contour. There scattered diverticula throughout the colon. There is a focal area of inflammatory stranding adjacent to the sigmoid colon, without definite extraluminal gas or abscess. GI tract is otherwise normal in caliber and contour. No retroperitoneal or mesenteric adenopathy. Abdominal aorta normal in caliber. Images of pelvis show nondistended urinary bladder. Prostate gland normal in size. No free pelvic fluid or pelvic lymphadenopathy. Bone windows show no acute findings. Mild multilevel spondylosis. Small umbilical hernia containing only fat. IMPRESSION: 1. Findings consistent with acute sigmoid diverticulitis. No localized perforation or abscess at this time. 2. Bibasilar scar or atelectasis. 3. Hiatal hernia. Electronically signed by: Alphonse Austin MD (12/25/2019 7:17 PM) [id number] DICTATED AND SIGNED BY: ALPHONSE AUSTIN MD DATE: 12/25/191916 CC: BRENDA SANCHEZ MD; CAROLYN KEANE DO ~ (CAROLYN KEANE DO) Course & Med Decision Making Course & Med Decision Making Pertinent Labs and Imaging studies reviewed. (See chart for details) Patient seen for left lower quad abdominal pain. Will place an IV and give IV fluids obtain labs urinalysis and abdominal x-ray. Transition care to Dr. Keane at 6:00. (DONALDO GUILLERMO DO) Course & Med Decision Making The patient has sigmoid diverticulitis. I will admit her to the hospital. I spoke with Dr. Swan and he has accepted patient for admission. Rocephin and another milligrams of Flagyl 3 times a day. These have been ordered. The patient is in agreement with admission. (CAROLYN KEANE DO) Dragon Disclaimer Dragon Disclaimer This electronic medical record was generated, in whole or in part, using a voice recognition dictation system. (DONALDO GUILLERMO DO) Departure Departure: Impression: Primary Impression: Diverticulitis Disposition: ADMITTED INPATIENT Admitting Physician: Matthew Swan (CAROLYN KEANE DO) Condition: STABLE Referrals: BRENDA SANCHEZ MD (PCP) DONALDO GUILLERMO DO Dec 25, 2019 17:30 CAROLYN KEANE DO Dec 25, 2019 21:56
[2019-12-25 18:25] LABS: BASO # 0.1 x10^3/uL (0.0-0.2); BASO % 0 % (0-3); EOS # 0.3 x10^3/uL (0.0-0.7); EOS % 1 % (0-3); HEMATOCRIT 41.1 % (36.0-47.0); HEMOGLOBIN 13.9 g/dL (12.0-15.5); LYMPH # 3.7 x10^3/uL (1.0-4.8); LYMPH % 18 % (24-48); MEAN CORPUSCULAR HEMOGLOBIN 34 pg (25-35); MEAN CORPUSCULAR HGB CONC 34 g/dL (31-37); MEAN CORPUSCULAR VOLUME 100 fL (79-100); MONO # 2.1 x10^3/uL (0.0-1.1); MONO % 10 % (0-9); NEUT # 14.4 x10^3uL (1.8-7.7); NEUT % 70 % (31-73); PLATELET COUNT 296 x10^3/uL (140-400); RED BLOOD COUNT 4.12 x10^6/uL (3.50-5.40); RED CELL DISTRIBUTION WIDTH 13.6 % (11.5-14.5); WHITE BLOOD COUNT 20.6 x10^3/uL (4.0-11.0)
--- NOTE | 2019-12-25 18:25 | RAD ---
INDICATION: Left lower quadrant pain COMPARISON: None. IMPRESSION: Abdomen: 3 views obtained. Cardiac mediastinal silhouette near upper limits of normal in size with calcific atherosclerosis. Mild linear opacities left lung base. Could be from atelectasis although early infiltrate could have a similar appearance. Degenerative changes of the spine. Large amount of stool in the left side of the abdomen. Correlate for possible causes such as constipation. Right hip arthroplasty changes. Degenerative changes left hip. Electronically signed by: Charles Bui MD (12/25/2019 6:22 PM) [id number]
[2019-12-25 18:37] LABS: CALCIUM 9.5 mg/dL (8.5-10.1); CREATININE 1.1 mg/dL (0.6-1.0); GFR 48.4
[2019-12-25 18:43] LABS: ALBUMIN 4.1 g/dL (3.4-5.0); ALBUMIN/GLOBULIN RATIO 1.5 (1.0-1.7); TOTAL BILIRUBIN 0.4 mg/dL (0.2-1.0); TOTAL PROTEIN 6.9 g/dL (6.4-8.2)
[2019-12-25] MEDS ORDERED: IOHEXOL 300 MG/ML 75 ML VIAL. IV ONE (19:00)
--- NOTE | 2019-12-25 19:20 | RAD ---
CT abdomen pelvis with contrast dated 12/25/2019. Comparison made to 01/18/2013. Clinical data indication: Left lower quadrant pain. TECHNIQUE: Contiguous axial imaging of the abdomen and pelvis performed after the administration of intravenous contrast. One or more of the following individualized dose reduction techniques were utilized for this examination: 1. Automated exposure control 2. Adjustment of the mA and/or kV according to patient size 3. Use of iterative reconstruction technique. FINDINGS: Limited images of lung bases show patchy and linear opacity in the left lower lobe and lingula and right middle lobe, likely scar or atelectasis. Heart size is mildly enlarged. No pleural or pericardial effusion. Small hiatal hernia. Liver, spleen, pancreas, adrenal glands and kidneys are unremarkable. No hydronephrosis. The gallbladder is unremarkable. There is a well-circumscribed low-density focus within the inferior left lobe liver consistent with cyst. Partially opacified GI tract normal in caliber and contour. There scattered diverticula throughout the colon. There is a focal area of inflammatory stranding adjacent to the sigmoid colon, without definite extraluminal gas or abscess. GI tract is otherwise normal in caliber and contour. No retroperitoneal or mesenteric adenopathy. Abdominal aorta normal in caliber. Images of pelvis show nondistended urinary bladder. Prostate gland normal in size. No free pelvic fluid or pelvic lymphadenopathy. Bone windows show no acute findings. Mild multilevel spondylosis. Small umbilical hernia containing only fat. IMPRESSION: 1. Findings consistent with acute sigmoid diverticulitis. No localized perforation or abscess at this time. 2. Bibasilar scar or atelectasis. 3. Hiatal hernia. Electronically signed by: Alphonse Austin MD (12/25/2019 7:17 PM) [id number]
[2019-12-25] MEDS ORDERED: HYDROmorphone PF 1 MG/ML DISP.SYRIN IV PRN (21:00)
[2019-12-25] MEDS ORDERED: ONDANSETRON PF 4 MG/2 ML VIAL. IVP PRN (21:00)
[2019-12-25] MEDS ORDERED: cefTRIAXone SODIUM 1 GM VIAL ONE (21:03)
[2019-12-25] MEDS ORDERED: IV NORMAL SALINE 50ML 50 ML ONE (21:03)
[2019-12-25 21:31] LABS: % BANDS 1 % (0-9); % EOS 1 % (0-5); % SEGS 72 % (35-66)
[2019-12-25 21:32] LABS: % LYMPHS 17 % (24-48); % MONOS 9 % (0-10)
[2019-12-25 21:33] LABS: ANISOCYTOSIS SLIGHT; PLT ESTIMATE ADEQUATE (ADEQUATE); TEAR DROP CELLS OCC
[2019-12-25] MEDS ORDERED: SIMV20TA18 PO (22:36)
[2019-12-25] MEDS ORDERED: GABA-586 PO (22:36)
[2019-12-25] MEDS ORDERED: SIMV10TA15 PO (22:36)
[2019-12-25] MEDS ORDERED: GABA600T7 PO (22:36)
[2019-12-25] MEDS ORDERED: MIRT15TA PO (22:36)
[2019-12-25] MEDS ORDERED: ESCITALOPRAM OX20 MG PO (22:36)
[2019-12-25] MEDS ORDERED: LORA-254 PO (22:36)
[2019-12-25] MEDS ORDERED: CELE200C PO (22:36)
[2019-12-25 22:42] VITALS: BP 154/70
[2019-12-25] MEDS ORDERED: ACET325T9 PO (22:50)
[2019-12-25] MEDS: SIMVASTATIN 10 MG TABLET PO SCH (23:04)
[2019-12-25] MEDS: ACETAMINOPHEN 325 MG TABLET PO PRN (23:04)
[2019-12-25] MEDS: CELECOXIB 100 MG CAPSULE PO SCH (23:04)
[2019-12-25] MEDS: MIRTAZAPINE 15 MG TABLET PO SCH (23:04)
[2019-12-25] MEDS: LORazepam 1 MG TABLET PO SCH (23:05)
[2019-12-25] MEDS: GABAPENTIN 300 MG CAPSULE. PO SCH (23:05)
[2019-12-25] MEDS: metroNIDAZOLE 500 MG TABLET PO SCH (23:05)
--- NOTE | 2019-12-26 | NUR ---
The patient, JUSTO FRANKLIN, 74 y/o, F admitted by MEGGAN JURADO MD, was given written information regarding hospital policies, unit procedures and contact persons. Pt accompanied unto the unit by EMS personnel and nursing supervisor audit clerks via [facility]. Pt able to transfer self from gurney to bed independently. Pt reports that the abdominal pain start on the left lower side the started to move across. Pt reports that she is in so much pain that she has had multiple seizures in the ED. Pt seen hitting the bed with her hands, shaking her legs. Pt states, "See i am having one now due to the pain." Pt remains alert and reaching for the rails on the bed to "hold on". Tech reports a similar event when walking back from the bathroom. Vitals assessed and stable. Pt given regular home medication. Valuables were checked and left in room with pt. Rails padded, bed alarm in place and call light within reach. Pt sleeping at this time.
[2019-12-26 05:11] VITALS: BP 129/72
--- NOTE | 2019-12-26 10:02 | HP ---
ADMIT DATE: 12/25/2019 ATTENDING PHYSICIAN: Meggan Jurado MD CHIEF COMPLAINT: Left lower quadrant pain. HISTORY OF PRESENT ILLNESS: The patient is a very pleasant 74-year-old female who is very active and functional. She has new onset on the day of admission with severe left-sided lower quadrant pain rated 9/10. No bleeding per rectum. She is somewhat nauseated. She had a workup in the ED. The CT abdomen and pelvis showed diverticular disease with inflammation of the colon and the sigmoid region. She had been eating peanuts in the form of M and M with peanuts. PAST MEDICAL HISTORY: Significant for functional movement disorder, diverticulitis, gastroesophageal reflux disease and degenerative arthritis, also underlying depression. CURRENT MEDICINES: Include Tylenol, amlodipine, Celebrex, Lexapro, Neurontin, lorazepam, Remeron, omeprazole, and Zocor. ALLERGIES: She has allergies to MORPHINE, which causes profound nausea. SOCIAL HISTORY: She is a nonsmoker, nondrinker. FAMILY HISTORY: It is sad to say her mom and dad both of lung cancer, father at age 75, mom at age 54. She also has 3 brothers who succumbed to lung cancer. She herself does not smoke. She is . She is currently retired. She is otherwise active and self-sufficient. REVIEW OF SYSTEMS: Significant for localized pain. She has been eating peanuts. She denied any fevers, chills, bloody stools, hematemesis, hematochezia. All other systems were reviewed and determined to be negative. PHYSICAL EXAMINATION: GENERAL: When I saw her, this is a very pleasant female appearing younger than the stated age. VITAL SIGNS: Initial vital signs in the ED showed a blood pressure 154/70, her pulse is 86 and regular, temperature 97.9 degrees Fahrenheit, and oxygen saturation was 94% on room air. HEENT: Head is without trauma. Pupils are reactive. Sclerae are nonicteric. The oropharynx is clear. NECK: Supple, no bruits identified. LUNGS: Otherwise clear to auscultation. CARDIOVASCULAR: Showed regular heart tones. Normal S1, S2. No obvious gallops. Peripheral pulses are palpable and full. ABDOMEN: Minimal tenderness in the left lower quadrant. Minimal rebound tenderness; however, there is some guarding on deep palpation. Bowel sounds are hypoactive. No masses were palpated. EXTREMITIES: Showed no cyanosis or edema. NEUROLOGIC FINDINGS: Focally intact. No deficits. PERTINENT LABORATORY STUDIES AND X-RAY STUDIES: Initial CT of the abdomen and pelvis confirmed diverticulitis. White count is elevated at 20,600, hemoglobin 13.9 g/dL. Electrolytes are within normal range. Nonfasting blood sugar 114, creatinine is 1.1 mg/dL. ASSESSMENT: 1. A 74-year-old female with acute diverticulitis, sigmoid colon. 2. Leukocytosis. 3. Essential hypertension. 4. Underlying depression. 5. Gastroesophageal reflux disease. PLAN: 1. Admit to the inpatient unit. 2. IV hydration. 3. Clear liquid diet for now. 4. Rocephin daily. 5. Flagyl as administered. 6. We will advance diet as tolerated. 7. Pain control. She has tolerated fentanyl in the ED. MEGGAN JURADO MD DR: DELIA/freddie JOB#: [id number] / [id number]
[2019-12-26] MEDS: GABAPENTIN 300 MG CAPSULE. PO SCH ×3 (10:11→20:45)
[2019-12-26] MEDS: PANTOPRAZOLE 40 MG TABLET. PO SCH (10:11)
[2019-12-26] MEDS: LORazepam 1 MG TABLET PO SCH ×2 (10:11→20:46)
[2019-12-26] MEDS: CELECOXIB 100 MG CAPSULE PO SCH ×2 (10:11→20:46)
[2019-12-26] MEDS: amLODIPine BESYLATE 10 MG TABLET PO SCH (10:12)
[2019-12-26] MEDS: metroNIDAZOLE 500 MG TABLET PO SCH ×3 (10:12→20:45)
[2019-12-26] MEDS: CITALOPRAM 20 MG TABLET. PO SCH (10:12)
[2019-12-26 10:48] VITALS: BP 118/63
[2019-12-26 14:47] VITALS: BP 112/55
[2019-12-26] MEDS: diphenhydrAMINE HCL 25 MG CAPSULE PO PRN ×2 (15:09→21:52)
--- NOTE | 2019-12-26 16:25 | NUR ---
Patient feeling a little better today, states that pain located to her abdomen is better and is not having sharp stabbing pain. Continues on IV rocephin and PO flagyl for diverticulitis. Patient able to ambulate with standby assistance, later this afternoon patient went to take a shower and stated to staff that she has broken out into a rash. Stating to staff "this happens all the time, it appears and then will go away but i will need to take something before it gets better." Patient denies SOA or difficulty breathing, reported to Dr Swan that patient appears to have hives. Redness and hive like appearance is located to chest, back and stomach. Orders for PO Benadryl given. Per Physician if hives continue to occur then we will discuss possibility of changing antibiotics.
[2019-12-26 19:28] VITALS: BP 114/61
[2019-12-26] MEDS: ACETAMINOPHEN 325 MG TABLET PO PRN (20:45)
[2019-12-26] MEDS: MIRTAZAPINE 15 MG TABLET PO SCH (20:45)
[2019-12-26] MEDS: LACTOBACILLUS RHAMNOSUS GG 1 CAPSULE. PO SCH (20:46)
[2019-12-26] MEDS: SIMVASTATIN 10 MG TABLET PO SCH (20:46)
--- NOTE | 2019-12-26 22:26 | NUR ---
Pt is noted to have redness to chest, back and upper arms. Pt reports that it is better than what it was earlier today, and it is not really bothering her at this time. Pt reports that this happen 3 or more times a year, but denies knowing what bring these rashes on. Pt educated to notify nurse of worsen of rash, itchy, or SOB occurs.
[2019-12-26 23:09] VITALS: BP 99/59
[2019-12-27 05:00] VITALS: BP 108/58
--- NOTE | 2019-12-27 08:48 | NUR ---
This nurse spoke with physican in regards to patients hives, patient this morning has red hives located to arms, chest, back and stomach. Verbal orders to discontinue antibiotics and start levaquin and solumedrol. Plan is to stay one more day and possibly discharge tomorrow. Patient states she is feeling much better today and denies any abdominal pain at this time.
[2019-12-27] MEDS: CELECOXIB 100 MG CAPSULE PO SCH ×2 (08:59→20:46)
[2019-12-27] MEDS: PANTOPRAZOLE 40 MG TABLET. PO SCH (08:59)
[2019-12-27] MEDS: GABAPENTIN 300 MG CAPSULE. PO SCH ×3 (08:59→20:44)
[2019-12-27] MEDS: LORazepam 1 MG TABLET PO SCH ×2 (08:59→20:45)
[2019-12-27] MEDS: LACTOBACILLUS RHAMNOSUS GG 1 CAPSULE. PO SCH ×2 (08:59→20:44)
[2019-12-27] MEDS: amLODIPine BESYLATE 10 MG TABLET PO SCH (08:59)
[2019-12-27] MEDS ORDERED: methylPREDNISolone SOD SUCC PF 40 MG/ML VIAL. IV ONE (09:00)
[2019-12-27] MEDS: CITALOPRAM 20 MG TABLET. PO SCH (09:00)
--- NOTE | 2019-12-27 10:23 | PN ---
DATE: 12/27/2019 ATTENDING PHYSICIAN: Dr. Jurado. SUBJECTIVE: Abdominal pain is better. She is eating and less nauseated. She has a posterior cervical and neck pain due to tension. She also has a diffuse urticarial rash of her arms and anterior chest, most likely related to her antibiotics. She had been on Rocephin and metronidazole. OBJECTIVE: VITAL SIGNS: Her blood pressure today is 108/58, her pulse is 60 and regular. She is afebrile. Oxygen saturation 93% on room air. HEENT: Head is without trauma. Pupils are reactive. Sclerae nonicteric. Oropharynx clear. NECK: Supple, no bruits identified. LUNGS: Otherwise clear. CARDIOVASCULAR: Showed regular heart tones. No obvious gallops. Peripheral pulses palpable and full. ABDOMEN: Minimal guarding in the left lower quadrant. It is soft to palpation. Bowel sounds are normoactive. There is no guarding. There is no rebound tenderness. EXTREMITIES: Show no cyanosis or edema. SKIN: There is a fine blanching evanescent rash along anterior chest and her both forearms. These do respond the blanching, they are urticarial in nature. ASSESSMENT: 1. Acute diverticulitis, improved. 2. Urticarial lesions systemically related to antibiotics. 3. Musculoskeletal tension headaches. PLAN: 1. I will discontinue her Rocephin and the Flagyl. In lieu of this, I will order Levaquin as a different class of antibiotics. 2. I offered her some modalities to treat her tension headaches. She will agree to a heating pad for now. 3. Diet: Advance as tolerated. 4. Pain control has not been an issue. 5. With symptoms improving, she can be discharged as early as tomorrow with oral antibiotics. We will see how the rash responds to the change in antibiotics, in the meantime Benadryl has helped her in the past. MEGGAN JURADO MD DR: DELIA/freddie JOB#: [id number] / [id number]
[2019-12-27 11:34] VITALS: BP 112/62
[2019-12-27 16:18] VITALS: BP 113/66
[2019-12-27 19:15] VITALS: BP 116/68
[2019-12-27] MEDS: MIRTAZAPINE 15 MG TABLET PO SCH (20:45)
[2019-12-27] MEDS: SIMVASTATIN 10 MG TABLET PO SCH (20:45)
[2019-12-27 22:59] VITALS: BP 106/56
[2019-12-28 05:34] VITALS: BP 122/64
[2019-12-28 08:08] LABS: BASO % 0 % (0-3); EOS % 0 % (0-3); HEMATOCRIT 37.3 % (36.0-47.0); HEMOGLOBIN 12.4 g/dL (12.0-15.5); LYMPH # 2.3 x10^3/uL (1.0-4.8); LYMPH % 13 % (24-48); MEAN CORPUSCULAR HEMOGLOBIN 34 pg (25-35); MEAN CORPUSCULAR HGB CONC 33 g/dL (31-37); MEAN CORPUSCULAR VOLUME 101 fL (79-100); MONO # 0.8 x10^3/uL (0.0-1.1); MONO % 5 % (0-9); NEUT % 83 % (31-73); PLATELET COUNT 274 x10^3/uL (140-400); RED BLOOD COUNT 3.71 x10^6/uL (3.50-5.40); RED CELL DISTRIBUTION WIDTH 13.6 % (11.5-14.5); WHITE BLOOD COUNT 18.1 x10^3/uL (4.0-11.0)
[2019-12-28] MEDS: LORazepam 1 MG TABLET PO SCH (08:09)
[2019-12-28] MEDS: CELECOXIB 100 MG CAPSULE PO SCH (08:09)
[2019-12-28] MEDS: CITALOPRAM 20 MG TABLET. PO SCH (08:09)
[2019-12-28] MEDS: GABAPENTIN 300 MG CAPSULE. PO SCH ×2 (08:09→13:12)
[2019-12-28] MEDS: LACTOBACILLUS RHAMNOSUS GG 1 CAPSULE. PO SCH (08:10)
[2019-12-28] MEDS: amLODIPine BESYLATE 10 MG TABLET PO SCH (08:10)
[2019-12-28] MEDS: PANTOPRAZOLE 40 MG TABLET. PO SCH (08:10)
[2019-12-28 08:29] LABS: ALBUMIN 3.4 g/dL (3.4-5.0); ALBUMIN/GLOBULIN RATIO 0.9 (1.0-1.7); CREATININE 0.8 mg/dL (0.6-1.0); GFR 69.9; POTASSIUM 3.9 mmol/L (3.5-5.1); TOTAL BILIRUBIN 0.4 mg/dL (0.2-1.0)
[2019-12-28] MEDS: diphenhydrAMINE HCL 25 MG CAPSULE PO PRN (10:09)
[2019-12-28 14:29] VITALS: BP 132/85
[2019-12-28] MEDS ORDERED: IOHEXOL 300 MG/ML 75 ML VIAL. IV ONE (15:30)
[2019-12-28 15:45] LABS: % ATYL 2 % (0-0); % LYMPHS 7 % (24-48); % MONOS 4 % (0-10); % SEGS 87 % (35-66); PLT ESTIMATE ADEQUATE (ADEQUATE)
[2019-12-28 15:46] LABS: ANISOCYTOSIS SLIGHT
--- NOTE | 2019-12-28 15:57 | PN ---
DATE: 12/28/2019 SUBJECTIVE: The patient is resting, slightly propped up in bed, complaining that the pain in her left lower quadrant has flared up again. Denied any nausea, vomiting, but did complain of constipation. Denied any chills, rigors or fever. She had tremors worsen whenever she is in pain, although what she describes is not really seizures. She is awake, alert, answering questions appropriately, although she is tremulous. PHYSICAL EXAMINATION: GENERAL: When I examined her, she was pale, but no jaundice, cyanosis or thyromegaly. No jugular venous distention. No lower limb edema. VITAL SIGNS: Her heart rate was 67, blood pressure was 132/85, temperature was 98.3, respiratory rate was 20 and oxygen saturation was 92%. HEAD, EYES, EARS, NOSE AND THROAT: Showed normocephalic, atraumatic. NECK: Supple. HEART: Showed normal first and second heart sounds. No gallop or murmur. CHEST: Showed central trachea, equal bilateral expansion, air entry, vesicular sounds. No crepitation or rhonchi. ABDOMEN: Distended, soft. Tenderness mostly in the left lower quadrant. There is no guarding or rigidity. No organomegaly. All hernial orifices intact. Bowel sounds normal. NEUROLOGIC: She is awake, alert, responding appropriately. All cranial nerves are intact. She moves extremities without difficulty. Her intake was 2065, no output was recorded. LABORATORY DATA: Showed serum sodium 145, potassium 3.9, chloride 108, bicarbonate 25, anion gap of 12, BUN 16, creatinine 0.8, estimated GFR was 70 mL per minute. Her glucose 114, calcium was 9. Total bilirubin, AST, ALT, alkaline phosphatase were normal. Total protein was 7, albumin was 3.4. Her white cell count continued to be high at 18,000, hemoglobin 12.4, hematocrit 37, MCV 101 and platelet count 274,000 with normal manual differential. ASSESSMENT: 1. Acute diverticulitis. 2. Urticarial lesions systemically related to antibiotics. 3. Tension headache. PLAN: Given that there is a flare up of her symptoms today, hr white cell count continues to be elevated, I am concerned that she might have complication including perhaps either an abscess or perforation and therefore I will arrange for her to have a CT scan of the abdomen and pelvis with IV contrast and we will decide on further management accordingly. I will also her on fentanyl 50 mcg IV every 3 hours for pain management. MARIA TERESA MOSQUEDA MD DR: CRIS/freddie JOB#: [id number] / [id number]
--- NOTE | 2019-12-28 16:10 | NUR ---
NSG NOTE; PSEUDOSEIZURE WHILE ROUNDING WITH DR MOSQUEDA, WE WALKED INTO THE PT'S ROOM WHERE HER ARMS AND LEGS WERE SHAKING MILDLY. WE ASKED HER HOW SHE WAS AND SHE STATED SHE WAS IN PAIN AND THAT'S WHY SHE IS HAVING THE SEIZURE. SHE CONTINUED TO TALK TO US THROUGHOUT THE PSEUDOSEIZURE AND STATED SHE HAS THEM WHEN SHE IS IN PAIN. WHEN BRINGING HER PAIN MEDS BACK TO THE ROOM, SHE WAS SITTING UP IN BED, SHAKING HER EXTREMITIES AND HEAD. SHE STATED SHE IS HAVING ANOTHER SEIZURE BECAUSE OF THE PAIN. I GAVE HER FENTANYL IV AND ACCOMP HER TO THE BR. SHE SAID THOUGH SHE IS STILL HAVING THE SEIZURE, SHE CAN WALK TO THE BR WITH STANDBY ASSIST.
--- NOTE | 2019-12-28 16:19 | RAD ---
Exam: CT of abdomen and pelvis with contrast INDICATION: Recurrence of abdominal pain, constipation persistent leukocytosis TECHNIQUE: Sequential axial images through the abdomen and pelvis obtained following the administration of 75 mL of Omni 300 IV contrast. Sagittal and coronal reformatted images were reconstructed from the axial data and reviewed. Comparisons: 12/25/2019 FINDINGS: Heart size is normal. No pericardial effusion. Visualized lung bases are clear. No pleural effusion. Liver, spleen, pancreas, gallbladder and adrenals are unremarkable. Kidneys demonstrate symmetric enhancement. No perinephric inflammation or hydronephrosis. No renal or ureteral calculi are identified. Bladder is decompressed not well evaluated. Uterus is absent. No abnormal adnexal mass. Diverticulosis noted throughout the sigmoid colon with an area of inflammation surrounding the sigmoid colon. There is been development of a small amount of free intra-abdominal air predominantly at the perihepatic and subdiaphragmatic regions. No focal fluid collection is identified. No evidence for obstruction. Abdominal aorta has a normal course and caliber. Abdominal vasculature is patent. No enlarged abdominal lymph nodes are identified. Left hip arthroplasty changes are noted. No suspicious osseous lesions or acute fractures. IMPRESSION: Interval development of a small amount of free intra-abdominal air, likely related to perforation at the area of diverticulitis at the sigmoid colon. No focal fluid collections suggest abscess. Exposure: One or more of the following in the visualized dose reduction techniques were utilized for this examination: 1. Automated exposure control 2. Adjustment of the MA and/or KV according to patient size 3. Use of iterative of reconstructive technique FOR INTERNAL CODING PURPOSES Critical result: Findings discussed with MARIA TERESA MOSQUEDA at 12/28/2019 4:15 PM. RESULT CODE: (C) Electronically signed by: Les Angela MD (12/28/2019 4:16 PM) [id number]
--- NOTE | 2019-12-28 18:17 | NUR ---
NSG NOTE; TRANSFER TO [facility] DR MOSQUEDA SPOKE WITH RADIOLOGIST WHO REPORTED DIVERTICULITIS PERFORATION. DR MOSQUEDA ORDERS TO TRANSFER TO [facility] FOR SURGICAL CONSULT REPORT CALLED TO ANTONY MACHUCA AT 1730 PT TRANSFERRED TO [facility] AT 1810 VIA CART ACCOMP BY EMS PERSONNEL PAPER COPY OF CHART SENT WITH PT
--- NOTE | 2019-12-29 16:36 | DS ---
DATE OF DISCHARGE: 12/28/2019 HOSPITAL COURSE: The patient is a 74-year-old female patient who presented to the Emergency Room of [facility] on 12/24 with a complaint of abdominal pain, mostly in the left lower quadrant and suprapubic area for 2 hours prior to arrival to the Emergency Room, that is not letting up, no medication given. Prior to arrival, the patient rates the pain as about 9/10. She has no history of any intra-abdominal pathology and she denies any nausea, vomiting, diarrhea, constipation, fevers or chills. She was extensively investigated in the Emergency Room and her lab work showed that she has leukocytosis with a white cell count of 20,600. Her chemistry mostly was unremarkable except mildly elevated BUN and creatinine. Urinalysis was unremarkable and she did have a CT scan of the abdomen and pelvis, which basically showed that her finding consistent with acute sigmoid diverticulitis, no localized perforation or abscess at this time. She does have bibasilar scar or atelectasis and hiatal hernia. The patient was admitted, started on IV Rocephin and Flagyl as well as IV fluid and pain management. Unfortunately, the patient has reacted. Apparently, she had urticarial lesion, felt to be a reaction to the antibiotic and therefore her Rocephin and Flagyl were discontinued and therefore, she was started on Levaquin and when I saw her on the day of discharge, the patient was complaining of severe pain that has worsened. Again, she continued to complain of pain mostly in the left lower quadrant and suprapubic area, but denied any nausea or vomiting. Denied any diarrhea. Denied any chills, rigors or fever. Given that the intensity of pain has worsened dramatically, I have arranged for her to have a CT scan of the abdomen and pelvis with IV contrast only and the CT scan report showed that there is interval development of a small amount of free intra-abdominal air, likely related to perforation at the area of diverticulitis at the sigmoid colon. No focal fluid collection to suggest an abscess and I did contact Dr. Choudhury and a decision was made to transfer her to [facility] for further evaluation and perhaps surgical intervention if deemed necessary. She was kept n.p.o., continue the IV fluid, IV antibiotic and pain management. PHYSICAL EXAMINATION: GENERAL: On the day of discharge, she looked well and was clearly in no apparent respiratory distress. No pallor, jaundice, cyanosis or thyromegaly. No jugular venous distension. No lower limb edema. VITAL SIGNS: Her heart rate was 67, blood pressure was 132/85, temperature was 98.5, respiratory rate was 20, and oxygen saturation was 92% on room air. HEAD, EYES, EARS, NOSE AND THROAT: Normocephalic, atraumatic. NECK: Supple. HEART: Showed normal first and second heart sounds. No gallop or murmur. CHEST: Clear to auscultation. No crepitation or rhonchi. ABDOMEN: Distended, soft, with tenderness mostly in the left lower quadrant and suprapubic area. There is no guarding or rigidity. No organomegaly. All hernial orifices intact. Bowel sounds normal. NEUROLOGIC: She was awake, alert, responding appropriately. All cranial nerves intact. EXTREMITIES: She moves extremities without difficulty. LABORATORY DATA: Her lab work showed that her white cell count is slightly down to 18,100, hemoglobin 12.4, hematocrit 37.3, MCV 101 and platelet count of 276,000. Her chemistry showed a serum sodium 145, potassium 3.9, chloride 108, bicarbonate 25, anion gap of 12, BUN 16, creatinine 0.8, estimated GFR was 70 mL per minute. Her glucose 114, calcium was 9. Total bilirubin, AST, ALT, alkaline phosphatase were normal. Total protein 7, albumin was 3.4. DISCHARGE MEDICATIONS: She was transferred to [facility] to continue on fentanyl citrate 50 mcg IV every 3 hours, levofloxacin 750 mg IV daily, lactobacillus rhamnosus 1 capsule twice a day and diphenhydramine 25 mg IV every 6 hours, gabapentin 300 mg at lunch, citalopram hydrobromide 40 mg daily, amlodipine besylate 10 mg once a day, Protonix 40 mg daily and Celebrex 200 mg twice a day, simvastatin 10 mg at bedtime, mirtazapine 15 mg at bedtime, lorazepam 1 mg twice a day, gabapentin 600 mg twice a day and acetaminophen 650 mg every 6 hours. FINAL DISCHARGE DIAGNOSES: 1. Acute diverticulitis with perforation. 2. Hypertension, familial; tremor; gastroesophageal reflux disease and degenerative joint arthritis and depression. AHMED M. JAYLIN, MD DR: CRIS/freddie JOB#: [id number] / [id number]
== END 2019-12-28 18:10 | disposition short-term general hospital (02) | DRG 872 ==
LOC: ER 16:30 → 1 SOUTH 20:25
PROVIDERS: ADMIT Hospitalist; ATTEND Internal Medicine
DX: A41.9 Sepsis, unspecified organism (principal); K57.20 Diverticulitis of large intestine with perforation and abscess without bleeding; J98.11 Atelectasis; K21.9 Gastro-esophageal reflux disease without esophagitis; F32.9 Major depressive disorder, single episode, unspecified; I10 Essential (primary) hypertension; K44.9 Diaphragmatic hernia without obstruction or gangrene; G44.209 Tension-type headache, unspecified, not intractable; M19.90 Unspecified osteoarthritis, unspecified site; M54.2 Cervicalgia; G25.0 Essential tremor; Z90.710 Acquired absence of both cervix and uterus; Z90.49 Acquired absence of other specified parts of digestive tract; Z80.1 Family history of malignant neoplasm of trachea, bronchus and lung; Z88.8 Allergy status to other drugs, medicaments and biological substances
CPT/HCPCS: 36415; 74022; 74177; 80053; 81001; 83690; 84484; 85007; 85025; 87086; 96365; 96375; J0696; J1170; J1956; J2405; J2920; J3010; Q0163; Q9967; 99285-25; J7030

== ENCOUNTER 2020-02-20 09:20 | Emergency (ER) | payer MEDICARE ==
[~2020-02-20] VITALS: Ht 165.1 cm; Wt 72.7 kg
[~2020-02-20 09:20] MED LIST changes: +ACET325T9 PO; +CELE200C PO; +ESCITALOPRAM OX20 MG PO; +GABA-586 PO; +GABA600T7 PO; +LORA-254 PO; +MIRT15TA PO; +SIMV10TA15 PO; +SIMV20TA18 PO
--- NOTE | 2020-02-20 10:12 | PHYS DOC ---
Past History Past Medical History: Hypertension, Seizure, Other Additional Past Medical Histor: BACK PROBLEMS Past Surgical History: Appendectomy, Hysterectomy, Tonsillectomy, Other Additional Past Surgical Histo: HIP SURGERY, KNEE SUREGERY Alcohol Use: None Drug Use: None General Adult EDM: Chief Complaint: BACK PAIN OR INJURY HPI: HPI: Patient is a 74-year-old female presents to the emergency department for eval uation of lower back pain, radiating towards her right hip. The pain also radiates down her right leg. She states the pain began about 5 days ago after she spent the day bent over in her yard. She states she normally has difficulty bending over, and states she spent too long in a bent position, and when she got up she began having the back pain. Movement seems to worsen her pain. She has not had any traumatic injuries. She denies any urinary or fecal incontinence, numbness, weakness, or paresthesias. Other than movement worsening her pain. There are no exacerbating, or alleviating factors to her symptoms. She states that she does occasionally get a prescription for oxycodone from her PCP, for similar back pain, although this pain seems more intense. Her [employer]LE [employer]ORTER history has been reviewed. She does take gabapentin and Ativan regularly. She was recently hospitalized for diverticulitis, notes and imaging, including her abdominal CT, from her hospitalization in December of this year were reviewed. She is not having any new or recurrent abdominal pain. Review of Systems: Review of Systems: Constitutional: Denies fever or chills Eyes: Denies change in visual acuity HENT: Denies nasal congestion or sore throat Respiratory: Denies cough or shortness of breath Cardiovascular: Denies chest pain or edema GI: Denies abdominal pain, nausea, vomiting, bloody stools or diarrhea : Denies dysuria Musculoskeletal: As per HPI Integument: Denies rash Neurologic: Denies headache, focal weakness or sensory changes Endocrine: Denies polyuria or polydipsia Lymphatic: Denies swollen glands Psychiatric: Denies depression or anxiety Heart Score: Risk Factors: Risk Factors: DM, Current or recent (<one month) smoker, HTN, HLP, family history of CAD, obesity. Risk Scores: Score 0 - 3: 2.5% MACE over next 6 weeks - Discharge Home Score 4 - 6: 20.3% MACE over next 6 weeks - Admit for Clinical Observation Score 7 - 10: 72.7% MACE over next 6 weeks - Early Invasive Strategies Allergies: Allergies: Allergies Coded Allergies Type Severity Reaction Last Updated Verified ceftriaxone Allergy Intermediate hives 12/27/19 Yes metronidazole Allergy Intermediate hives 12/27/19 Yes morphine Allergy Intermediate Rash 12/25/19 Yes Physical Exam: PE: PHYSICAL EXAM: CONSTITUTIONAL: Well developed, well nourished HEAD: normocephalic, atraumatic EENT: PERRL, EOMI. Conjunctivae normal color, sclerae non-icteric; moist mucous membranes. NECK: Supple, non-tender; no meningismus. LUNGS: Lungs CTA, breathing even and unlabored. Normal air movement. HEART: Regular rate and rhythm, no murmur CHEST: No deformity; non-tender ABDOMEN: The abdomen is soft, and non-tender, no masses or bruits. EXTREM: Normal ROM; no deformity, no calf tenderness. Normal pulses palpable in all extremities. There is no pedal edema. SKIN: No rash; no diaphoresis NEURO: Alert; normal speech and cognition; CN's grossly intact; strength grossly intact without focal deficit. Patellar reflexes are 2+ bilaterally. There is no foot drop. There is no perineal anesthesia. Distal sensation is normal. BACK: No CVA TTP. There is tenderness palpation diffusely to the right paraspinal musculature, over the lumbar spine, without any focal bony midline tenderness to palpation. Straight leg raise is positive on the right at about 50 degrees. EKG: EKG: [] Radiology/Procedures: Radiology/Procedures: [] Course & Med Decision Making: Course & Med Decision Making 11:40 AM: Pt is feeling better and she is able to ambulate at her baseline. Does have some gait instability but uses a walker at baseline. She feels well enough to go home at this time. I discussed importance of close PCP follow-up and return precautions in detail. She states that her is able to help her ambulate as well and does not feel that she is at high risk for fall given the help with her walker and that she has at home. Amari Disclaimer: Amari Disclaimer: This electronic medical record was generated, in whole or in part, using a voice recognition dictation system. Departure Departure: Impression: Primary Impression: Low back pain Disposition: HOME, SELF-CARE Condition: STABLE Referrals: BRENDA SANCHEZ MD (PCP) Patient Instructions: Back Pain, Adult Scripts Diazepam (VALIUM) 5 Mg Tablet 5 MG PO TID for back pain, #12 TAB Prov: BEHZAD JUNE MD 02/20/20 Oxycodone HCl/Acetaminophen (Percocet 5-325 mg Tablet) 1 Each Tablet 1 TAB PO Q6HRS PRN for PAIN MDD 3 Tablet(s), #20 TAB 0 Refills Prov: BEHZAD JUNE MD 02/20/20 BEHZAD JUNE MD February 20, 2020 10:12
[2020-02-20] MEDS ORDERED: oxyCODONE/APAP 5/325 1 TAB TABLET PO ONE (10:15)
[2020-02-20] MEDS ORDERED: diazePAM 5 MG TABLET PO ONE (10:15)
[2020-02-20] MEDS ORDERED: DIAZ5TAB PO (11:45)
[2020-02-20] MEDS ORDERED: OXYC-325 PO (11:45)
[2020-02-20 12:18] VITALS: BP 149/72
== END 2020-02-20 11:47 | disposition home or self-care (01) ==
LOC: ER 09:20
DX: M54.5 Low back pain (principal); I10 Essential (primary) hypertension; Z90.89 Acquired absence of other organs; Z90.710 Acquired absence of both cervix and uterus; Z88.5 Allergy status to narcotic agent; Z88.8 Allergy status to other drugs, medicaments and biological substances
CPT/HCPCS: 99285

== ENCOUNTER 2020-05-09 07:12 | Emergency (ER) | payer MEDICARE ==
[~2020-05-09] VITALS: Ht 165.1 cm; Wt 72.7 kg
[~2020-05-09 07:12] MED LIST changes: +DIAZ5TAB PO; +OXYC-325 PO
--- NOTE | 2020-05-09 07:39 | PHYS DOC ---
Past History Past Medical History: High Cholesterol, Hypertension, Seizure Additional Past Medical Histor: BACK PROBLEMS Past Surgical History: Appendectomy, Hysterectomy, Tonsillectomy Additional Past Surgical Histo: hand surgery Alcohol Use: Rarely Drug Use: None General Adult EDM: Chief Complaint: abdominal pain HPI: HPI: 74-year-old female presents with left-sided abdominal pain. Patient states that she has had some discomfort here for at least a week. She usually puts an extra pillow under that side when she sleeps and that has helped. Last night, the pain became moderate to severe and she had difficulty sleeping. He continues to hurt quite a bit this morning. It is a deep cramping. Her left abdomen is very tender to touch. She decided she should come in for evaluation. She denies fever or chills. She has had both diarrhea and constipation lately. Patient has a history of diverticulitis in the past. She denies trauma or falls. She has chronic back pain at baseline for which she takes narcotic pain medication. Review of Systems: Review of Systems: Constitutional: Denies fever or chills Eyes: Denies change in visual acuity HENT: Denies nasal congestion or sore throat Respiratory: Denies cough or shortness of breath Cardiovascular: Denies chest pain or edema GI: Left lower quadrant abdominal pain. Denies nausea, vomiting, bloody stools. : Denies dysuria Musculoskeletal: Denies back pain or joint pain Integument: Denies rash Neurologic: Denies headache, focal weakness or sensory changes Endocrine: Denies polyuria or polydipsia Lymphatic: Denies swollen glands Psychiatric: Denies depression or anxiety Heart Score: Risk Factors: Risk Factors: DM, Current or recent (<one month) smoker, HTN, HLP, family history of CAD, obesity. Risk Scores: Score 0 - 3: 2.5% MACE over next 6 weeks - Discharge Home Score 4 - 6: 20.3% MACE over next 6 weeks - Admit for Clinical Observation Score 7 - 10: 72.7% MACE over next 6 weeks - Early Invasive Strategies Allergies: Allergies: Allergies Coded Allergies Type Severity Reaction Last Updated Verified ceftriaxone Allergy Intermediate hives 12/27/19 Yes metronidazole Allergy Intermediate hives 12/27/19 Yes morphine Allergy Intermediate Rash 12/25/19 Yes Physical Exam: PE: Constitutional: Well developed, well nourished, no acute distress, non-toxic appearance. [] HENT: Normocephalic, atraumatic, bilateral external ears normal, oropharynx moist, no oral exudates, nose normal. [] Eyes: PERRLA, EOMI, conjunctiva normal, no discharge. [] Neck: Normal range of motion, no tenderness, supple, no stridor. [] Cardiovascular: Heart rate regular rhythm, no murmur [] Lungs & Thorax: Bilateral breath sounds clear to auscultation [] Abdomen: Bowel sounds normal, soft, LLQ tenderness, no masses, no pulsatile masses. [] Skin: Warm, dry, no erythema, no rash. [] Back: No tenderness, no CVA tenderness. [] Extremities: No tenderness, no cyanosis, no clubbing, ROM intact, no edema. [] Neurologic: Alert and oriented X 3, normal motor function, normal sensory function, no focal deficits noted. [] Psychologic: Affect normal, judgement normal, mood normal. [] EKG: EKG: [] Radiology/Procedures: Radiology/Procedures: [] Impressions: Axial CT of the abdomen and pelvis were obtained after the administration of 60 cc Omnipaque 300. Coronal and sagittal reformats are also available. Exposure: One or more of the following individualized dose reduction techniques were utilized for this examination: 1. Automated exposure control 2. Adjustment of the mA and/or kV according to patient size 3. Use of iterative reconstruction technique Indication: Left lower quadrant pain. Comparison: 12/28/2019. Findings: Stable cardiomegaly. Stable scarring of the left lower lobe parenchyma. The liver, spleen, adrenals, kidneys, gallbladder and pancreas are unremarkable in appearance. The stomach, small and large bowel are nondistended. No evidence pathologic wall thickening. There is sigmoid diverticulosis without diverticulitis. There is substantial dilation or urinary bladder. Left hip arthroplasty limits detailed evaluation of the deep pelvis. The abdominal aorta is tortuous and mildly calcified without aneurysmal dilation or significant stenosis. The portal, superior mesenteric and splenic veins are unremarkable in appearance. No radiologically significant retroperitoneal or mesenteric lymphadenopathy is identified. There is mild degenerative change of the lumbar spine the thoracic team disc at L4-5. IMPRESSION: 1. No acute findings. There is sigmoid diverticulosis without diverticulitis. Electronically signed by: Jd Brewster MD (05/09/2020 9:12 AM) [id number] DICTATED AND SIGNED BY: JD BREWSTER MD DATE: 05/09/20911 CC: BRENDA SANCHEZ MD; CAROLYN KEANE DO ~ Course & Med Decision Making: Course & Med Decision Making Pertinent Labs and Imaging studies reviewed. (See chart for details) The patient's labs are unremarkable. Her CT of the abdomen and pelvis is negative for acute findings. She does have at least a moderate amount of stool throughout the colon. Her discomfort could be related to the stool burden. She is taking narcotic pain medications. I will advised that she take a laxative in addition to her stool softener to try to move more through. Patient does not meet criteria for admission. She is stable for discharge at this time. [] Dragon Disclaimer: Dragon Disclaimer: This electronic medical record was generated, in whole or in part, using a voice recognition dictation system. Departure Departure: Impression: Primary Impression: Abdominal pain Qualified Codes: R10.32 - Left lower quadrant pain Disposition: HOME/RESIDENCE PRIOR TO ADM Condition: STABLE Referrals: BRENDA SANCHEZ MD (PCP) Patient Instructions: Abdominal Pain, [id number], Constipation, Adult, [id number] Justification of Admission: Justification of Admission: Justification of Admission Dx: N/A CAROLYN KEANE DO May 09, 2020 07:39
[2020-05-09 08:16] LABS: BASO % 0 % (0-3); EOS # 0.2 x10^3/uL (0.0-0.7); EOS % 2 % (0-3); HEMATOCRIT 42.3 % (36.0-47.0); HEMOGLOBIN 14.4 g/dL (12.0-15.5); LYMPH # 3.7 x10^3/uL (1.0-4.8); LYMPH % 44 % (24-48); MEAN CORPUSCULAR HEMOGLOBIN 33 pg (25-35); MEAN CORPUSCULAR HGB CONC 34 g/dL (31-37); MEAN CORPUSCULAR VOLUME 97 fL (79-100); MONO # 0.9 x10^3/uL (0.0-1.1); MONO % 10 % (0-9); NEUT # 3.8 x10^3uL (1.8-7.7); NEUT % 44 % (31-73); PLATELET COUNT 280 x10^3/uL (140-400); RED BLOOD COUNT 4.37 x10^6/uL (3.50-5.40); RED CELL DISTRIBUTION WIDTH 14.3 % (11.5-14.5); WHITE BLOOD COUNT 8.6 x10^3/uL (4.0-11.0)
[2020-05-09 08:24] LABS: CALCIUM 9.3 mg/dL (8.5-10.1); CREATININE 1.1 mg/dL (0.6-1.0); GFR 48.4
[2020-05-09 08:30] LABS: ALBUMIN 4.2 g/dL (3.4-5.0); ALBUMIN/GLOBULIN RATIO 1.3 (1.0-1.7); TOTAL BILIRUBIN 0.7 mg/dL (0.2-1.0); TOTAL PROTEIN 7.4 g/dL (6.4-8.2)
[2020-05-09] MEDS: IOHEXOL 300 MG/ML 75 ML VIAL. IV ONE (08:39)
[2020-05-09] MEDS: IV NORMAL SALINE 1,000ML 1,000 ML IV ONE (08:59)
--- NOTE | 2020-05-09 09:15 | RAD ---
Axial CT of the abdomen and pelvis were obtained after the administration of 60 cc Omnipaque 300. Coronal and sagittal reformats are also available. Exposure: One or more of the following individualized dose reduction techniques were utilized for this examination: 1. Automated exposure control 2. Adjustment of the mA and/or kV according to patient size 3. Use of iterative reconstruction technique Indication: Left lower quadrant pain. Comparison: 12/28/2019. Findings: Stable cardiomegaly. Stable scarring of the left lower lobe parenchyma. The liver, spleen, adrenals, kidneys, gallbladder and pancreas are unremarkable in appearance. The stomach, small and large bowel are nondistended. No evidence pathologic wall thickening. There is sigmoid diverticulosis without diverticulitis. There is substantial dilation or urinary bladder. Left hip arthroplasty limits detailed evaluation of the deep pelvis. The abdominal aorta is tortuous and mildly calcified without aneurysmal dilation or significant stenosis. The portal, superior mesenteric and splenic veins are unremarkable in appearance. No radiologically significant retroperitoneal or mesenteric lymphadenopathy is identified. There is mild degenerative change of the lumbar spine the thoracic team disc at L4-5. IMPRESSION: 1. No acute findings. There is sigmoid diverticulosis without diverticulitis. Electronically signed by: Marcellus Mckeon MD (05/09/2020 9:12 AM) [id number]
[2020-05-09 09:32] LABS: BACTERIA,URINE FEW /HPF (0-FEW); BILIRUBIN,URINE NEG (NEG); CLARITY,URINE CLEAR; COLOR,URINE YELLOW; GLUCOSE,URINE NEG (NEG); NITRITE,URINE NEG (NEG); RBC,URINE OCC /HPF (0-2); SQUAMOUS EPITHELIAL CELL,UR FEW /LPF; UROBILINOGEN,URINE 0.2 mg/dL (0.2 mg/dL)
[2020-05-09] MEDS ORDERED: HYDR-3166 PO (09:51)
[2020-05-09] MEDS ORDERED: HYDROcodone/APAP 7.5/325MG 1 TAB TABLET ONE (10:01)
[2020-05-09] MEDS: HYDROcodone/APAP 7.5/325MG 1 TAB TABLET PO ONE (10:03)
[2020-05-09 10:17] VITALS: BP 146/95
[2020-05-09] MEDS ORDERED: OXYC-325 PO (10:31)
== END 2020-05-09 10:32 | disposition home or self-care (01) ==
LOC: ER 07:12
DX: R10.32 Left lower quadrant pain (principal); R19.7 Diarrhea, unspecified; K59.00 Constipation, unspecified; E78.00 Pure hypercholesterolemia, unspecified; I10 Essential (primary) hypertension; Z90.89 Acquired absence of other organs; Z90.710 Acquired absence of both cervix and uterus; Z88.5 Allergy status to narcotic agent; Z88.8 Allergy status to other drugs, medicaments and biological substances
CPT/HCPCS: 36415; 74177; 80053; 81001; 85025; 87086; 96360; 99285; J7030; Q9967

== ENCOUNTER 2020-05-23 08:40 | Emergency (ER) | payer MEDICARE ==
[~2020-05-23] VITALS: Ht 165.1 cm; Wt 75.0 kg
[~2020-05-23 08:40] MED LIST changes: +HYDR-3166 PO
--- NOTE | 2020-05-23 09:15 | PHYS DOC ---
Past History Past Medical History: High Cholesterol, Hypertension, Seizure Additional Past Medical Histor: BACK PROBLEMS Past Surgical History: Appendectomy, Hysterectomy, Tonsillectomy Additional Past Surgical Histo: hand surgery Alcohol Use: Rarely Drug Use: None General Adult EDM: Chief Complaint: MULTIPLE COMPLAINTS HPI: HPI: 74-year-old female past medical history significant for epilepsy, hypertension, hyperlipidemia and diverticulosis, presents to the ED with complaints of bright red bloody bowel movement just prior to arrival-reports scant blood in toilet basin. Patient states last night before bed she started having multiple episodes of nonbloody nonbilious vomiting and loose watery diarrhea with upper abdominal pain. States she woke up in the night with lower cramping abdominal pain and had multiple episodes of loose watery diarrhea. Last colonoscopy was 3 years ago. No history of liver disease, cirrhosis, GI bleed or need for blood transfusion. Known history of hemorrhoids-unsure if internal or external. Currently has no abdominal pain, is concerned for the blood in her stools that started this am. asymptomatic-both had stew for dinner ROS: Denies associated fever, chills, headache, neck stiffness, dyspnea, orthopnea, chest pain, sore throat, cough, constipation, back pain, dysuria, hematuria, melena, hematemesis, leg swelling, anuria or rash. Review of Systems: Review of Systems: Constitutional: Denies fever or chills Eyes: Denies change in visual acuity HENT: Denies nasal congestion or sore throat Respiratory: Denies cough or shortness of breath Cardiovascular: Denies chest pain or edema GI: Denies abdominal pain, nausea, vomiting, bloody stools or diarrhea : Denies dysuria Musculoskeletal: Denies back pain or joint pain Integument: Denies rash Neurologic: Denies headache, focal weakness or sensory changes Endocrine: Denies polyuria or polydipsia Lymphatic: Denies swollen glands Psychiatric: Denies depression or anxiety Allergies: Allergies: Allergies Coded Allergies Type Severity Reaction Last Updated Verified ceftriaxone Allergy Intermediate hives 05/09/20 Yes metronidazole Allergy Intermediate hives 05/09/20 Yes morphine Allergy Intermediate Rash 05/09/20 Yes hydrocodone Allergy Unknown Hives 05/09/20 Yes Physical Exam: PE: Constitutional: Well developed, well nourished, no acute distress, non-toxic ap pearance. [] HENT: Normocephalic, atraumatic, bilateral external ears normal, oropharynx moist, no oral exudates, nose normal. [] Eyes: EOMI, conjunctiva normal, no discharge. [] Neck: Normal range of motion, no tenderness, supple, no stridor. [] Cardiovascular:Heart rate regular rhythm, no murmur [] Lungs & Thorax: Bilateral breath sounds clear to auscultation [] Abdomen: Bowel sounds normal, soft, no tenderness, no masses, no pulsatile masses. [] Skin: Warm, dry, no erythema, no rash. [] not pale Back: No tenderness, no CVA tenderness. [] Extremities: No tenderness, no cyanosis, no clubbing, ROM intact, no edema. [] Neurologic: Alert and oriented X 3, normal motor function, normal sensory function, no focal deficits noted. [] Psychologic: Affect normal, judgement normal, mood normal. [] RECTAL: chaperoned by rn, small non thrombosed hemorrhoid at noon, no brbpr, neela w/no stool/melena/hematochezia - clear digit, pt tolerated exam EKG: EKG: [] Radiology/Procedures: Radiology/Procedures: IMAGING REPORT Signed PATIENT: JUSTO FRANKLIN ACCOUNT: [id number] : 1945 LOCATION: ER AGE: 74 SEX: F EXAM STATUS: REG ER ORD. PHYSICIAN: PATT OLGUIN DO REASON: v/d, bloody diarrhea, lower abdominal pain PROCEDURE: CT ABD PELV W/ IV CONTRST ONLY Examination: CT of the abdomen pelvis with IV contrast HISTORY: History of vomiting, bloody diarrhea COMPARISON: 04/22/2020 TECHNIQUE: Axial CT images of the abdomen pelvis were performed with IV contrast. Coronal and sagittal reformats are performed Exposure: One or more of the following individualized dose reduction techniques were utilized for this examination: 1. Automated exposure control 2. Adjustment of the mA and/or kV according to patient size 3. Use of iterative reconstruction technique. Findings: Linear atelectasis left lower lobe of the lung. No evidence of free air identified in the abdomen. Small 8 mm hypodensity identified. The spleen, adrenals grossly appears unremarkable. The gallbladder is mildly distended. The stomach is mildly distended. The small bowel is nondilated. Feces and gas noted in the colon. Moderate thickened appearance of the wall of the descending colon with surrounding infiltrative fat stranding. Multiple colonic diverticulosis. Bilateral kidneys enhance symmetrically. Urinary bladder is mildly distended. Total left hip arthroplasty changes. Moderate degenerative changes most at L4-L5 vertebral levels with small posterior disc bulge. Impression : 1. Thickened appearance of the wall of the descending colon with surrounding inflammatory fat stranding likely colitis. Electronically signed by: Rigoberto Mauro MD (05/23/2020 10:28 AM) [id number] DICTATED AND SIGNED BY: RIGOBERTO MAURO MD DATE: 05/23/20 1028 CC: BRENDA SANCHEZ MD; PATT OLGUIN DO ~ Course & Med Decision Making: Course & Med Decision Making Pertinent Labs and Imaging studies reviewed. (See chart for details) Concern for vomiting and diarrhea with hemorrhoids and scant hematochezia (not seen on physical exam). Pt is hemodynamically stable with no tachycardia. H&H is 14/43, no signs of anemia. No acute blood loss on physical exam. CT imaging concerning for fat stranding and colitis. Patient has a Flagyl and Rocephin allergy cannot recall her symptoms. No emesis or diarrhea in ed. Will DC home on Augmentin with Zofran. Strict ED return cautions given for recurrent bleeding, severe abdominal pain, weakness or shortness of breath. Encourage urgent GI follow-up. Encouraged urgent outpatient follow-up with PMD and GI. Life- threatening processes were considered but are low suspicion at this time, given history and physical exam. All patient's questions were answered and pt was stable at time of discharge. Differential includes aortic dissection, aortic aneurysm, acute coronary syndrome, surgical abdomen (appendicitis, cholecystitis, ischemic bowel, strangulated hernia, etc), bowel obstruction or volvulus, bladder outlet obstruction, inflammatory bowel disease, peptic ulcer disease, sepsis, diverticular disease, ureterolithiasis, GI bleed, nephrolithiasis, ovarian or testicular torsion, ectopic I spoken with the patient and her caregivers. I explained the patient's condition, diagnoses and treatment plan based on the information available to me at this time. I have answered the patient and her caregiver's questions and addressed any concerns. The patient and her caregivers have a good understanding of patient's diagnosis, condition and treatment plan as can be expected at this point. Vital signs have been stable. Patient's condition is stable and appropriate for discharge from the emergency department. Patient will pursue further outpatient evaluation with primary care physician or other designated or consulting physician as outlined in the discharge instructions. The patient and/or caregivers are agreeable to this plan of care and follow-up instructions have been explained in detail. The patient and/or caregivers have received these instructions in written form and have expressed an understanding of the discharge instructions. The patient and/or caregivers are aware that any significant change of condition or worsening of symptoms should prompt immediate return to this or the closest emergency department or call to 911. Dragon Disclaimer: Dragon Disclaimer: This electronic medical record was generated, in whole or in part, using a voice recognition dictation system. Departure Departure: Impression: Primary Impression: Colitis Additional Impressions: Vomiting and diarrhea Hematochezia Disposition: HOME/RESIDENCE PRIOR TO ADM Condition: STABLE Referrals: BRENDA SANCHEZ MD (PCP) Patient Instructions: Colitis, Diarrhea Scripts Ondansetron Hcl (ZOFRAN) 4 Mg Tablet 1 TAB PO PRN Q6HRS PRN for NAUSEA, #10 TAB Prov: PATT OLGUIN DO 05/23/20 Amoxicillin/Potassium Clav (AUGMENTIN 875-125 TABLET) 1 Each Tablet 1 TAB PO BID for colitis for 10 Days, #20 TAB 0 Refills Prov: PATT OLGUIN DO 05/23/20 Justification of Admission: Justification of Admission: Justification of Admission Dx: N/A PATT OLGUIN DO May 23, 2020 09:15
[2020-05-23 09:16] LABS: BASO % 0 % (0-3); EOS # 0.2 x10^3/uL (0.0-0.7); EOS % 2 % (0-3); HEMATOCRIT 43.5 % (36.0-47.0); HEMOGLOBIN 14.7 g/dL (12.0-15.5); LYMPH # 2.7 x10^3/uL (1.0-4.8); LYMPH % 24 % (24-48); MEAN CORPUSCULAR HEMOGLOBIN 33 pg (25-35); MEAN CORPUSCULAR HGB CONC 34 g/dL (31-37); MEAN CORPUSCULAR VOLUME 98 fL (79-100); MONO # 0.9 x10^3/uL (0.0-1.1); MONO % 8 % (0-9); NEUT # 7.2 x10^3uL (1.8-7.7); NEUT % 66 % (31-73); PLATELET COUNT 270 x10^3/uL (140-400); RED BLOOD COUNT 4.45 x10^6/uL (3.50-5.40); RED CELL DISTRIBUTION WIDTH 14.1 % (11.5-14.5)
[2020-05-23 09:25] VITALS: BP 147/74
[2020-05-23 09:25] LABS: CALCIUM 9.3 mg/dL (8.5-10.1); GFR 54.1; POTASSIUM 3.8 mmol/L (3.5-5.1)
[2020-05-23 09:30] LABS: ALBUMIN 4.3 g/dL (3.4-5.0); ALBUMIN/GLOBULIN RATIO 1.3 (1.0-1.7); TOTAL BILIRUBIN 0.7 mg/dL (0.2-1.0); TOTAL PROTEIN 7.7 g/dL (6.4-8.2)
[2020-05-23] MEDS: IOHEXOL 300 MG/ML 75 ML VIAL. IV ONE (09:39)
--- NOTE | 2020-05-23 10:31 | RAD ---
Examination: CT of the abdomen pelvis with IV contrast HISTORY: History of vomiting, bloody diarrhea COMPARISON: 04/22/2020 TECHNIQUE: Axial CT images of the abdomen pelvis were performed with IV contrast. Coronal and sagittal reformats are performed Exposure: One or more of the following individualized dose reduction techniques were utilized for this examination: 1. Automated exposure control 2. Adjustment of the mA and/or kV according to patient size 3. Use of iterative reconstruction technique. Findings: Linear atelectasis left lower lobe of the lung. No evidence of free air identified in the abdomen. Small 8 mm hypodensity identified. The spleen, adrenals grossly appears unremarkable. The gallbladder is mildly distended. The stomach is mildly distended. The small bowel is nondilated. Feces and gas noted in the colon. Moderate thickened appearance of the wall of the descending colon with surrounding infiltrative fat stranding. Multiple colonic diverticulosis. Bilateral kidneys enhance symmetrically. Urinary bladder is mildly distended. Total left hip arthroplasty changes. Moderate degenerative changes most at L4-L5 vertebral levels with small posterior disc bulge. Impression : 1. Thickened appearance of the wall of the descending colon with surrounding inflammatory fat stranding likely colitis. Electronically signed by: Rigoberto Mauro MD (05/23/2020 10:28 AM) [id number]
[2020-05-23] MEDS ORDERED: ONDA4TAB7 PO (10:42)
[2020-05-23] MEDS ORDERED: AMOX1TAB61 PO (10:42)
== END 2020-05-23 11:00 | disposition home or self-care (01) ==
LOC: ER 08:40
DX: K52.9 Noninfective gastroenteritis and colitis, unspecified (principal); K92.1 Melena; R11.10 Vomiting, unspecified; R19.7 Diarrhea, unspecified; E78.00 Pure hypercholesterolemia, unspecified; I10 Essential (primary) hypertension; Z90.89 Acquired absence of other organs; Z90.710 Acquired absence of both cervix and uterus; Z88.8 Allergy status to other drugs, medicaments and biological substances; Z88.5 Allergy status to narcotic agent
CPT/HCPCS: 36415; 74177; 80053; 85025; 85610; 85730; 99285; Q9967

== ENCOUNTER → 2020-09-02 | Outpatient (CLI) | payer MEDICARE ==
[~2020-09-02] MED LIST changes: +AMLO-187 PO; -AMLO10TA8 PO; +AMOX1TAB61 PO; +MIRT-37 PO; -MIRT15TA PO; +ONDA4TAB7 PO
--- NOTE | 2020-09-02 16:12 | RAD ---
DATE: 09/02/2020 11:10 AM EXAM: DIGITAL SCREEN BILAT W/CAD HISTORY: Screening COMPARISON: 05/03/2017 Bilateral full field craniocaudal and mediolateral oblique images were obtained using digital technique. This study was interpreted with the benefit of Computerized Aided Detection (CAD). FINDINGS: Breast Density: SCATTERED The breast parenchyma shows scattered fibroglandular densities. Breast parenchyma level B No suspicious masses, microcalcifications or architectural distortion is present to suggest malignancy in either breast. The visualized axillae are unremarkable. IMPRESSION: No mammographic evidence of malignancy. BI-RADS CATEGORY: 1 NEGATIVE RECOMMENDED FOLLOW-UP: 12M 12 MONTH FOLLOW-UP Annual screening mammography is recommended, unless clinically indicated sooner based on symptoms or change in physical exam. PQRS compliance statement: Patient information was entered into a reminder system with a target due date for the next mammogram. Mammography is a sensitive method for finding small breast cancers, but it does not detect them all and is not a substitute for careful clinical examination. A negative mammogram does not negate a clinically suspicious finding and should not result in delay in biopsying a clinically suspicious abnormality. "Our facility is accredited by the [employer] Mammography Program."
== END ==
LOC: MAMMO 11:00
PROVIDERS: ATTEND Family Medicine
DX: Z12.31 Encounter for screening mammogram for malignant neoplasm of breast (principal)
CPT/HCPCS: 77067

== ENCOUNTER → 2020-09-26 | Outpatient (CLI) | payer MEDICARE ==
--- NOTE | 2020-09-26 12:24 | RAD ---
EXAM: DUAL ENERGY X-RAY ABSORPTIOMETRY (DEXA). HISTORY: Postmenopausal screening. FINDINGS: The lowest measured T-score is -2.4 in the right femoral neck, based on a bone mineral dens ity of 0.709 g/cm^2. Refer to the worksheets for full detail. In comparison with the prior study of 04/30/2016, average bone mineral density at the lumbar spine elizabeth s changed +3.9%, while the average density at the hips has changed +4.4%. IMPRESSION: Low bone mass. Bone mineral density yields a T-score between -1.0 and -2.5. Fracture risk is increase d. FRAX was not calculated. METHODOLOGY: Dual energy x-ray absorptiometry was performed to measure bone mineral density. The foll owing analysis is based on the 2019 Official Positions of the International Society for Clinical Dens itometry: Measurements of the hips and the average of L1-L4 are preferred. When the spine and/or hip cannot be feasibly measured or interpreted, or in the setting of hyperparathyroidism, distal radial bone minera l density may be measured. The lumbar spine T-score is based on the average bone mineral density of L1-L4. In the setting of art ifact or anatomic abnormality, some lumbar levels may be excluded, and the remaining levels used for calculation. A single lumbar level is not used for diagnosis, and if only a single level is available for assessment, another anatomic site will be used to assign a diagnosis. The hip T-score is based on the bone mineral density measurement of the femoral neck or total proxima l femur of either side, whichever is lowest. Bilateral mean values are not used for diagnosis. The forearm T-score is derived from 33% of the distal radius of the nondominant forearm. For postmenopausal and perimenopausal women, and men age 50 or older, of all ethnic groups, T-scores are calculated through comparison of the current measurement with the NHANES III database standard fo r females aged 20-29 years. The lowest T-score of the evaluated anatomic sites is used to a ssign a diagnosis based on the World Health Organization densitometric classification. In premenopausal females and males younger than age 50, a Z-score is calculated based on population s pecific reference data for patient sex and self-reported ethnicity. Electronically signed by: John Grider MD (09/26/2020 12:22 PM) [id number]
== END ==
LOC: DXRAD 10:13
PROVIDERS: ATTEND Family Medicine
DX: M81.0 Age-related osteoporosis without current pathological fracture (principal)
CPT/HCPCS: 77080

== ENCOUNTER → 2021-03-04 | Outpatient (CLI) | payer MEDICARE ==
[~2021-03-04] MED LIST changes: +IOHEXOL 240 MG/ML 50ML VIAL. ONE; +IOHEXOL 300 MG/ML 75 ML VIAL. IV ONE
--- NOTE | 2021-03-04 10:17 | RAD ---
EXAM: Abdomen and pelvis CT with intravenous contrast. HISTORY: Pain and swelling. TECHNIQUE: Computed tomographic images of the abdomen and pelvis were obtained following the administ ration of intravenous contrast. Multiplanar reformatting was performed. *One or more of the following individualized dose reduction techniques were utilized for this examina tion: 1. Automated exposure control. 2. Adjustment of the mA and/or kV according to patient size. 3. Use of iterative reconstruction technique. COMPARISON: 05/23/2020. FINDINGS: Evaluation of the lower thorax demonstrates stable left lower lobe pleural parenchymal scar ring. There is also lingular and right middle lobe pleural parenchymal scarring. There is basilar ate lectasis. There is no pleural effusion. There is cardiomegaly. There is calcification of the mitral v alve annulus. There is a small hiatal hernia. There is a small cyst within the anterior right hepatic lobe. The gallbladder is unremarkable. The co mmon bile duct is prominent in caliber, likely within normal limits for patient age. No pancreatic le meghann is seen. The spleen and adrenal glands are unremarkable. There is bilateral renal cortical lobul ation, likely developmental. There is no suspicious renal lesion. There is no hydronephrosis. The appendix is likely surgically absent. There is moderate stool throughout the colon. There is colo sushma diverticulosis. There is no convincing diverticulitis. The bladder is unremarkable. The uterus is absent. There is a tiny fat-containing umbilical hernia and right inguinal hernia. The aorta is normal in caliber. No pathologically enlarged lymph node is seen. There is a left hip ar throplasty. There is advanced degenerative change involving the right hip. There is degenerative shanks ge throughout the lumbar spine, primarily at L4-L5 and L5-S1. IMPRESSION: 1. Chronic diverticulosis. There is no convincing appendicitis. 2. Moderate colonic stool. 3. Small hepatic cyst. 4. Tiny fat-containing umbilical and right inguinal hernias. 5. No acute abdominal or pelvic finding. Electronically signed by: Jocelin Rojas MD (03/04/2021 10:14 AM) [id number]
== END ==
LOC: CT 08:38
PROVIDERS: ATTEND Physician Assistant
DX: K57.30 Diverticulosis of large intestine without perforation or abscess without bleeding (principal); K76.89 Other specified diseases of liver; K40.90 Unilateral inguinal hernia, without obstruction or gangrene, not specified as recurrent; K42.9 Umbilical hernia without obstruction or gangrene; K44.9 Diaphragmatic hernia without obstruction or gangrene; J98.11 Atelectasis; I05.8 Other rheumatic mitral valve diseases; M16.11 Unilateral primary osteoarthritis, right hip; M47.817 Spondylosis without myelopathy or radiculopathy, lumbosacral region; Z96.642 Presence of left artificial hip joint
CPT/HCPCS: 74177; Q9967

== ENCOUNTER → 2021-04-07 | Outpatient (CLI) | payer MEDICARE ==
[~2021-04-07] MED LIST changes: -IOHEXOL 240 MG/ML 50ML VIAL. ONE; -IOHEXOL 300 MG/ML 75 ML VIAL. IV ONE; -OMEP40CA45 PO; +OMEP40CA7 PO
--- NOTE | 2021-04-07 11:51 | RAD ---
EXAM: Lumbar spine, 5 views. HISTORY: Pain. COMPARISON: None. FINDINGS: 5 views of the lumbar spine are obtained. There is lumbar levoscoliosis centered at L3. The re is degenerative endplate remodeling with disc space narrowing, osteophytosis and facet arthropathy predominantly at L4-5 and L5-S1, and to a lesser extent, L2-L3. There is relative preservation of th e disc spaces at L1-L2 and L3-L4. There is a left hip arthroplasty. IMPRESSION: 1. Multilevel degenerative change involving the lumbar spine, described in detail above. 2. No acute osseous finding. Electronically signed by: Jocelin Rojas MD (04/07/2021 11:48 AM) [id number]
--- NOTE | 2021-04-07 11:53 | RAD ---
EXAM: Pelvis and right hip, 4 views. HISTORY: Pain. COMPARISON: None. FINDINGS: A frontal view of the pelvis and frontal and frog-leg views of the right hip are obtained. There is a left hip arthroplasty in expected position. There is marginal right acetabular and femoral head spurring. There is degenerative change and scoliosis involving the lower lumbar spine. There is no fracture, dislocation or subluxation. IMPRESSION: 1. Mild right hip osteoarthritis. 2. Left hip arthroplasty in expected position. Electronically signed by: Jocelin Rojas MD (04/07/2021 11:51 AM) [id number]
== END ==
LOC: DXRAD 11:11
PROVIDERS: ATTEND Physician Assistant
DX: M47.817 Spondylosis without myelopathy or radiculopathy, lumbosacral region (principal); M41.86 Other forms of scoliosis, lumbar region; M48.07 Spinal stenosis, lumbosacral region; M25.78 Osteophyte, vertebrae; M16.11 Unilateral primary osteoarthritis, right hip; M25.851 Other specified joint disorders, right hip; Z96.642 Presence of left artificial hip joint
CPT/HCPCS: 72110; 73502

== ENCOUNTER 2021-09-05 11:52 | Emergency (ER) | payer MEDICARE ==
[~2021-09-05] VITALS: Ht 165.1 cm; Wt 81.6 kg
[2021-09-05 13:00] VITALS: BP 145/71
--- NOTE | 2021-09-05 13:51 | PHYS DOC ---
Past History Past Medical History: Diverticulitis, High Cholesterol, Hypertension Additional Past Medical Histor: BACK PROBLEMS, conversion disorder Past Surgical History: No Surgical History, Appendectomy, Hip Replacement, Hysterectomy, Tonsillectomy Additional Past Surgical Histo: hand surgery Alcohol Use: Rarely Drug Use: None General Adult EDM: Chief Complaint: MECHANICAL FALL HPI: HPI: 75-year-old female presents after fall at home. She fell a couple days ago but she has had increasing pain in the thoracic spine. It radiates around to her right ribs. She denies chest pain or shortness of breath. It is not worse with deep breathing. She cannot lay on her back flat and twisting her torso certain ways makes it hurt more. She has no other complaints at this time. Review of Systems: Review of Systems: Constitutional: Denies fever or chills Eyes: Denies change in visual acuity HENT: Denies nasal congestion or sore throat Respiratory: Denies cough or shortness of breath Cardiovascular: Denies chest pain or edema GI: Denies abdominal pain, nausea, vomiting, bloody stools or diarrhea : Denies dysuria Musculoskeletal: Thoracic back pain Integument: Denies rash Neurologic: Denies headache, focal weakness or sensory changes Endocrine: Denies polyuria or polydipsia Lymphatic: Denies swollen glands Psychiatric: Denies depression or anxiety Allergies: Allergies: Allergies Coded Allergies Type Severity Reaction Last Updated Verified ceftriaxone Allergy Intermediate hives 05/09/20 Yes metronidazole Allergy Intermediate hives 05/09/20 Yes morphine Allergy Intermediate Rash 05/09/20 Yes hydrocodone Allergy Unknown Hives 05/09/20 Yes Physical Exam: PE: Constitutional: Well developed, well nourished, no acute distress, non-toxic appearance. [] HENT: Normocephalic, atraumatic, bilateral external ears normal, oropharynx mois t, no oral exudates, nose normal. [] Eyes: PERRLA, EOMI, conjunctiva normal, no discharge. [] Neck: Normal range of motion, no tenderness, supple, no stridor. [] Cardiovascular:Heart rate regular rhythm, no murmur [] Lungs & Thorax: Bilateral breath sounds clear to auscultation [] Abdomen: Bowel sounds normal, soft, no tenderness, no masses, no pulsatile masses. [] Skin: Warm, dry, no erythema, no rash. [] Back: Bilateral paraspinal thoracic muscle tenderness, right-sided lateral rib tenderness. [] Extremities: No tenderness, no cyanosis, no clubbing, ROM intact, no edema. [] Neurologic: Alert and oriented X 3, normal motor function, normal sensory function, no focal deficits noted. [] Psychologic: Affect normal, judgement normal, mood normal. [] Current Patient Data: Vital Signs: Vital Signs Date Time Temp Pulse Resp B/P (MAP) Pulse Ox O2 Delivery O2 Flow Rate FiO2 09/05/21 13:00 147/74 (98) EKG: EKG: [] Radiology/Procedures: Radiology/Procedures: [] Impressions: XR RIBS MIN 3 VIEWS RT W/PA CHEST, XR THORACIC SPINE 3VIEWS Clinical indications: Reason: fall and back pain and right rib pain. Three-view thoracic spine series: Mild dextroscoliosis is seen. No compression fracture discitis or lytic process is evident. There is [id number] degenerative endplate spurring throughout the thoracic spine. Three-view right rib detail series: No acute right rib fracture is evident. Chest x-ray demonstrates focal eventration or pericardial cyst of the right medial cardiophrenic angle. There is mild linear atelectasis or scarring of both lung bases. No consolidative pneumonia or pleural effusion or perihilar pulmonary edema is seen. No pneumothorax is evident. The heart size is mildly enlarged but stable. The mediastinum and pulmonary vasculature and both jona are unremarkable. IMPRESSION: No acute osseous abnormality is evident. Electronically signed by: Prince Vega MD (09/05/2021 2:24 PM) [id number] DICTATED AND SIGNED BY: PRINCE VEGA MD DATE: 09/05/21 141 CC: BRENDA SANCHEZ MD; CAROLYN KEANE DO ~MTH0 0 Heart Score: C/O Chest Pain: N/A Risk Factors: Risk Factors: DM, Current or recent (<one month) smoker, HTN, HLP, family history of CAD, obesity. Risk Scores: Score 0 - 3: 2.5% MACE over next 6 weeks - Discharge Home Score 4 - 6: 20.3% MACE over next 6 weeks - Admit for Clinical Observation Score 7 - 10: 72.7% MACE over next 6 weeks - Early Invasive Strategies Course & Med Decision Making: Course & Med Decision Making Pertinent Labs and Imaging studies reviewed. (See chart for details) The patient's x-rays are negative for fracture. I believe she does has thoracic spine strain. I will discharge her with a short course of Percocet due to her allergies. She is stable for discharge at this time. [] Dragon Disclaimer: Dragon Disclaimer: This electronic medical record was generated, in whole or in part, using a voice recognition dictation system. Departure Departure: Impression: Primary Impression: Thoracic back pain Qualified Codes: M54.6 - Pain in thoracic spine Disposition: HOME / SELF CARE / HOMELESS Condition: STABLE Referrals: BRENDA SANCHEZ MD (PCP) Patient Instructions: Back Pain, Adult, [id number] Scripts Oxycodone HCl/Acetaminophen (Percocet 5-325 mg Tablet) 1 Each Tablet 1 TAB PO PRN BID PRN for PAIN MDD 2 Tablet(s) for 5 Days, #10 TAB 0 Refills Prov: CAROLYN KEANE DO 09/05/21 CAROLYN KEANE DO Sep 05, 2021 13:51
[2021-09-05] MEDS ORDERED: oxyCODONE/APAP 5/325 1 TAB TABLET PO ONE (14:00)
--- NOTE | 2021-09-05 14:27 | RAD ---
XR RIBS MIN 3 VIEWS RT W/PA CHEST, XR THORACIC SPINE 3VIEWS Clinical indications: Reason: fall and back pain and right rib pain. Three-view thoracic spine series: Mild dextroscoliosis is seen. No compression fracture discitis or l ytic process is evident. There is [id number]-ur-vmunitqd degenerative endplate spurring throughout the thor acic spine. Three-view right rib detail series: No acute right rib fracture is evident. Chest x-ray demonstrates focal eventration or pericardial cyst of the right medial cardiophrenic angl e. There is mild linear atelectasis or scarring of both lung bases. No consolidative pneumonia or ple ural effusion or perihilar pulmonary edema is seen. No pneumothorax is evident. The heart size is mil dly enlarged but stable. The mediastinum and pulmonary vasculature and both jona are unremarkable. IMPRESSION: No acute osseous abnormality is evident. Electronically signed by: Corky Vega MD (09/05/2021 2:24 PM) [id number]
--- NOTE | 2021-09-05 14:27 | RAD ---
XR RIBS MIN 3 VIEWS RT W/PA CHEST, XR THORACIC SPINE 3VIEWS Clinical indications: Reason: fall and back pain and right rib pain. Three-view thoracic spine series: Mild dextroscoliosis is seen. No compression fracture discitis or l ytic process is evident. There is [id number] degenerative endplate spurring throughout the thor acic spine. Three-view right rib detail series: No acute right rib fracture is evident. Chest x-ray demonstrates focal eventration or pericardial cyst of the right medial cardiophrenic angl e. There is mild linear atelectasis or scarring of both lung bases. No consolidative pneumonia or ple ural effusion or perihilar pulmonary edema is seen. No pneumothorax is evident. The heart size is mil dly enlarged but stable. The mediastinum and pulmonary vasculature and both jona are unremarkable. IMPRESSION: No acute osseous abnormality is evident. Electronically signed by: Corky Vega MD (09/05/2021 2:24 PM) [id number]
[2021-09-05] MEDS ORDERED: OXYC-325 PO (14:32)
== END 2021-09-05 14:44 | disposition home or self-care (01) ==
LOC: ER 11:52
DX: M54.6 Pain in thoracic spine (principal); E78.5 Hyperlipidemia, unspecified; I10 Essential (primary) hypertension; Z90.710 Acquired absence of both cervix and uterus; W18.39XA Other fall on same level, initial encounter; Y93.89 Activity, other specified; Y92.89 Other specified places as the place of occurrence of the external cause; Y99.8 Other external cause status
CPT/HCPCS: 71101; 72072; 99284-25

== ENCOUNTER 2021-10-14 10:55 | Emergency (ER) | payer MEDICARE ==
[~2021-10-14] VITALS: Ht 165.1 cm; Wt 81.6 kg
[2021-10-14] MEDS ORDERED: KETOROLAC 60 MG/2 ML VIAL. IM ONE (12:15)
[2021-10-14] MEDS ORDERED: ORPHENADRINE CITRATE 60 MG/2 ML VIAL. IM ONE (12:15)
[2021-10-14 12:34] LABS: BACTERIA,URINE MANY /HPF (0-FEW); BILIRUBIN,URINE NEG (NEG); CLARITY,URINE HAZY; COLOR,URINE YELLOW; GLUCOSE,URINE NEG (NEG); NITRITE,URINE POS (NEG); SQUAMOUS EPITHELIAL CELL,UR FEW /LPF; UROBILINOGEN,URINE 0.2 mg/dL (0.2 mg/dL); WBC,URINE >40 /HPF (0-4)
--- NOTE | 2021-10-14 13:34 | RAD ---
Examination: CT of the abdomen pelvis without contrast HISTORY: History of left flank pain COMPARISON: 03/04/2021 TECHNIQUE: Axial CT images of the abdomen pelvis were performed without contrast. Coronal and sagitta l reformats are performed Exposure: One or more of the following individualized dose reduction techniques were utilized for thi s examination: 1. Automated exposure control 2. Adjustment of the mA and/or kV according to patient size 3. Use of iterative reconstruction technique FINDINGS: Mild bibasilar lung atelectasis or infiltrates. No evidence of free air identified in the abdomen. The evaluation of the solid organs is limited due to lack of IV contrast. The evaluation of bowel is limited due to lack of oral contrast. Diffuse decreased attenuation noted in the liver likely hepatic steatosis. The spleen, adrenals grossly appears unremarkable. The gallbladder is mildly distended. The stomach is mildly distended. The visualized pancreas grossly appears unremarkable. Mild fluid distended small bowel loops identified in the abdomen. Multiple sig moid colon diverticulosis. Urinary bladder is mildly distended No evidence of intrarenal system calculi or hydronephrosis. Urinary bladder is mildly distended. Left total hip arthoplasty changes. IMPRESSION: 1. No evidence of intrarenal system calculi or hydronephrosis. 2. Hepatic steatosis. 3. Multiple sigmoid colon diverticulosis. 4. Mild fluid distended small bowel loops identified in the abdomen, nonspecific. Electronically signed by: Rigoberto Mauro MD (10/14/2021 1:32 PM) [id number]
[2021-10-14] MEDS ORDERED: CYCL5TAB PO (13:54)
[2021-10-14] MEDS ORDERED: CEPH500T PO (13:54)
--- NOTE | 2021-10-14 13:55 | PHYS DOC ---
Past History Past Medical History: Diverticulitis, High Cholesterol, Hypertension Additional Past Medical Histor: BACK PROBLEMS, conversion disorder Past Surgical History: No Surgical History, Appendectomy, Hip Replacement, Hysterectomy, Tonsillectomy Additional Past Surgical Histo: hand surgery Alcohol Use: Rarely Drug Use: None General Adult EDM: Chief Complaint: BACK PAIN OR INJURY HPI: HPI: Patient is a 25-year-old female coming in for left thoracic back pain. Patient states she woke up at 4 AM with this pain. Patient has a history of chronic back pain that is usually lower. Denies any recent injuries or heavy lifting. Denies any hematuria or dysuria. Review of Systems: Review of Systems: All other systems within normal limits except for as noted in the HPI Current Medications: Current Meds: Current Medications Medications (Trade) Dose Ordered Sig/Gena Start Time Stop Time Status Last Admin Dose Admin Ketorolac Tromethamine (Toradol Im) 60 mg 1X ONCE 10/14/21 12:15 10/14/21 12:28 DC 10/14/21 12:14 60 MG Orphenadrine Citrate (Norflex) 60 mg 1X ONCE 10/14/21 12:15 10/14/21 12:28 DC 10/14/21 12:13 60 MG Allergies: Allergies: Allergies Coded Allergies Type Severity Reaction Last Updated Verified ceftriaxone Allergy Intermediate hives 10/14/21 Yes metronidazole Allergy Intermediate hives 10/14/21 Yes morphine Allergy Intermediate Rash 10/14/21 Yes hydrocodone Allergy Unknown Hives 10/14/21 Yes Physical Exam: PE: Constitutional: Well developed, well nourished, no acute distress, non-toxic appearance. [] HENT: Normocephalic, atraumatic, bilateral external ears normal, nose normal. [ ] Eyes: PERRLA, conjunctiva normal, no discharge. [] Neck: No rigidity, supple, no stridor. [] Cardiovascular: Regular rate and rhythm, brisk cap refill [] Lungs & Thorax: Non labored symmetric respirations, no tachypnea or respiratory distress [] Abdomen: Soft, nondistended. Skin: Warm, dry, no erythema, no rash. [] Back: Unremarkable, no step-off or deformity, no point spinal tenderness, tenderness over left lobe thoracic area Extremities: No deformities, range of motion grossly intact, no lower extremity edema [] Neurologic: Alert and oriented X 3, no focal deficits noted. [] Psychologic: Affect normal, judgement normal, mood normal. [] Current Patient Data: Labs: Laboratory Tests Test 10/14/21 11:55 Urine Collection Type Unknown Urine Color Yellow Urine Clarity Hazy Urine pH 6.0 Urine Specific [place] 1.025 Urine Protein Trace (NEG-TRACE) Urine Glucose (UA) Neg mg/dL (NEG) Urine Ketones (Stick) Neg mg/dL (NEG) Urine Blood Small (NEG) Urine Nitrite Pos (NEG) Urine Bilirubin Neg (NEG) Urine Urobilinogen Dipstick 0.2 mg/dL (0.2 mg/dL) Urine Leukocyte Esterase Mod (NEG) Urine RBC 3-5 /HPF (0-2) Urine WBC >40 /HPF (0-4) Urine Squamous Epithelial Cells Few /LPF Urine Bacteria Many /HPF (0-FEW) Urine Mucus /LPF Vital Signs: Vital Signs Date Time Temp Pulse Resp B/P (MAP) Pulse Ox O2 Delivery O2 Flow Rate FiO2 10/14/21 11:10 97.7 22 161/77 (105) 95 EKG: EKG: [] Radiology/Procedures: Radiology/Procedures: [place] [address] IMAGING REPORT Signed PATIENT: JUSTO FRANKLIN ACCOUNT: [id number] : 1945 LOCATION: ER AGE: 75 SEX: F EXAM STATUS: REG ER ORD. PHYSICIAN: KATHRINE GLEASON MD REASON: left cva pain, stone study PROCEDURE: CT ABDOMEN PELVIS WO CONTRAST Examination: CT of the abdomen pelvis without contrast HISTORY: History of left flank pain COMPARISON: 03/04/2021 TECHNIQUE: Axial CT images of the abdomen pelvis were performed without contrast. Coronal and sagittal reformats are performed Exposure: One or more of the following individualized dose reduction techniques were utilized for this examination: 1. Automated exposure control 2. Adjustment of the mA and/or kV according to patient size 3. Use of iterative reconstruction technique FINDINGS: Mild bibasilar lung atelectasis or infiltrates. No evidence of free air identified in the abdomen. The evaluation of the solid organs is limited due to lack of IV contrast. The evaluation of bowel is limited due to lack of oral contrast. Diffuse decreased attenuation noted in the liver likely hepatic steatosis. The spleen, adrenals grossly appears unremarkable. The gallbladder is mildly distended. The stomach is mildly distended. The visualized pancreas grossly appears unremarkable. Mild fluid distended small b owel loops identified in the abdomen. Multiple sigmoid colon diverticulosis. Urinary bladder is mildly distended No evidence of intrarenal system calculi or hydronephrosis. Urinary bladder is mildly distended. Left total hip arthoplasty changes. IMPRESSION: 1. No evidence of intrarenal system calculi or hydronephrosis. 2. Hepatic steatosis. 3. Multiple sigmoid colon diverticulosis. 4. Mild fluid distended small bowel loops identified in the abdomen, nonspecific. Electronically signed by: Rigoberto Mauro MD (10/14/2021 1:32 PM) [id number] DICTATED AND SIGNED BY: RIGOBERTO MAURO MD DATE: 10/14/21 1320 CC: BRENDA SANCHEZ MD; KATHRINE GLEASON MD ~MTH0 0 [] Heart Score: C/O Chest Pain: No Risk Factors: Risk Factors: DM, Current or recent (<one month) smoker, HTN, HLP, family history of CAD, obesity. Risk Scores: Score 0 - 3: 2.5% MACE over next 6 weeks - Discharge Home Score 4 - 6: 20.3% MACE over next 6 weeks - Admit for Clinical Observation Score 7 - 10: 72.7% MACE over next 6 weeks - Early Invasive Strategies Course & Med Decision Making: Course & Med Decision Making Pertinent Labs and Imaging studies reviewed. (See chart for details) [] Amari Disclaimer: Amari Disclaimer: This electronic medical record was generated, in whole or in part, using a voice recognition dictation system. Departure Departure: Impression: Primary Impression: Flank pain Additional Impression: UTI (urinary tract infection) Disposition: HOME / SELF CARE / HOMELESS Condition: STABLE Referrals: BRENDA SANCHEZ MD (PCP) Patient Instructions: Urinary Tract Infection Scripts Cyclobenzaprine Hcl (CYCLOBENZAPRINE HCL) 5 Mg Tablet 1 TAB PO TID PRN for MUSCLE PAIN for 5 Days, #15 TAB Prov: KATHRINE GLEASON MD 10/14/21 Cephalexin (CEPHALEXIN) 500 Mg Tablet 1 TAB PO BID for antibiotic for 5 Days, #10 TAB Prov: KATHRINE GLEASON MD 10/14/21 KATHRINE GLEASON MD Oct 14, 2021 13:55
[2021-10-14 14:00] VITALS: BP 149/71
== END 2021-10-14 14:05 | disposition home or self-care (01) ==
LOC: ER 10:55
DX: N39.0 Urinary tract infection, site not specified (principal); G89.29 Other chronic pain; E78.00 Pure hypercholesterolemia, unspecified; I10 Essential (primary) hypertension; Z88.5 Allergy status to narcotic agent; Z88.8 Allergy status to other drugs, medicaments and biological substances
CPT/HCPCS: 74176; 81001; 87086; 96372; 99284; J1885; J2360; 87077; 87186

== ENCOUNTER → 2021-10-20 | Outpatient (CLI) | payer MEDICARE ==
[2021-10-14 14:00] VITALS: BP 149/71
[~2021-10-20] MED LIST changes: +CEPH500T PO; +CYCL5TAB PO
--- NOTE | 2021-10-20 11:26 | RAD ---
EXAM: Thoracic spine CT without contrast. HISTORY: Pain. TECHNIQUE: Computed tomographic images of the thoracic spine were obtained without contrast. Multipla arun reformatting was performed. *One or more of the following individualized dose reduction techniques were utilized for this examina tion: 1. Automated exposure control. 2. Adjustment of the mA and/or kV according to patient size. 3. Use of iterative reconstruction technique. COMPARISON: Abdomen and pelvis CT dated 10/14/2021. FINDINGS: There are is thoracic dextroscoliosis centered at T8. There is thoracic kyphosis. There is minimal anterolisthesis the upper thoracic levels. There is a mild compression fracture along the inf erior aspect of T8 with superimposed large inferior endplate Schmorl's node. This appears to be acute or subacute based on the presence of a fracture line. There is no additional acute or subacute fract ure. There is degenerative endplate remodeling and anterior spurring at multiple levels, predominantl y along the left aspect of T6-T7. This corresponds with the level of maximum scoliotic concavity. The re are endplate Schmorl's nodes at this level. There is also degenerative endplate remodeling with di sc space narrowing, Schmorl's node formation and vacuum phenomenon at L1-L2. There is multilevel face t arthropathy. There are few osseous hemangiomas. There is suspected bone demineralization. There is no acute finding within the visualized chest or upper abdomen. At T6-T7, there is a left paracentral to lateral recess disc protrusion superimposed on a disc bulge and left lateral predominant endplate osteophytosis. There is mild right facet arthropathy. There is mild narrowing of the left lateral recess. At T7-T8, there is a disc bulge and endplate remodeling. There is no stenosis. At T8-T9, there is a and left paracentral to lateral recess disc protrusion superimposed on a disc bu lge and endplate remodeling. There is no stenosis. At T9-T10, there is mild bilateral facet arthropathy. There is no stenosis. At T10-T11, there is a disc bulge and endplate remodeling. There is mild right and moderate left face t arthropathy. There is moderate left foraminal stenosis. At T11-T12, there is a disc bulge. There is no stenosis. At T12-L1, there is a disc bulge and endplate remodeling. There is mild right facet arthropathy. Ther e is no stenosis. At L1-L2, there is a disc bulge and endplate osteophytosis. There is mild bilateral facet arthropathy . There is mild central canal stenosis. IMPRESSION: 1. Mild acute or subacute compression fracture of T8 with superimposed inferior endplate Schmorl's no de. There is no retropulsion of the cortex at this level. 2. Multilevel degenerative change involving the thoracic and upper lumbar spine, described in detail above. This results in moderate left foraminal stenosis at T10-T11 and mild central canal stenosis at L1-L2. 3. Thoracic scoliosis and kyphosis. 4. Suspected bone demineralization. Electronically signed by: Jocelin Rojas MD (10/20/2021 11:24 AM) [id number]
== END ==
LOC: CT 10:42
PROVIDERS: ATTEND Family Medicine
DX: M47.815 Spondylosis without myelopathy or radiculopathy, thoracolumbar region (principal); M51.25 Other intervertebral disc displacement, thoracolumbar region; M51.44 Schmorl's nodes, thoracic region; M25.78 Osteophyte, vertebrae; M41.84 Other forms of scoliosis, thoracic region; M48.54XA Collapsed vertebra, not elsewhere classified, thoracic region, initial encounter for fracture
CPT/HCPCS: 72128

== ENCOUNTER → 2021-11-18 | Outpatient (CLI) | payer MEDICARE ==
--- NOTE | 2021-11-18 11:47 | RAD ---
BILATERAL DIGITAL SCREENING 2-D MAMMOGRAM INDICATION: Routine screening. COMPARISON: August 16, 2018, August 31, 2019 and September 02, 2020 Interpretation was made using CAD. FINDINGS: Breast Density: There are scattered areas of fibroglandular density. RIGHT BREAST: No suspicious masses, calcifications or areas of architectural distortion are seen. LEFT BREAST: No suspicious masses, calcifications or areas of architectural distortion are seen. IMPRESSION: 1. No imaging evidence of malignancy. ASSESSMENT: BI-RADS 1. Negative. RECOMMENDATION: Routine annual screening mammogram. The facility will notify the patient of the results via mail. Patient information will be entered int o the mammography reminder system with a target recall date for the next mammogram. A reminder letter will be generated by the facility. Electronically signed by: Fanta Ohara MD (11/18/2021 11:44 AM) [id number]
== END ==
LOC: MAMMO 08:46
PROVIDERS: ATTEND Family Medicine
DX: Z12.31 Encounter for screening mammogram for malignant neoplasm of breast (principal)
CPT/HCPCS: 77067

== ENCOUNTER 2022-01-09 13:13 | Emergency (ER) | payer MEDICARE ==
[~2022-01-09] VITALS: Ht 165.1 cm; Wt 78.9 kg
[2022-01-09] MEDS ORDERED: oxyCODONE/APAP 5/325 1 TAB TABLET PO ONE (13:45)
--- NOTE | 2022-01-09 13:56 | PHYS DOC ---
Past History Past Medical History: Diverticulitis, High Cholesterol, Hypertension Additional Past Medical Histor: BACK PROBLEMS, conversion disorder Past Surgical History: No Surgical History, Appendectomy, Hip Replacement, Hysterectomy, Tonsillectomy Additional Past Surgical Histo: hand surgery Alcohol Use: Rarely Drug Use: None General Adult EDM: Chief Complaint: RIB PAIN HPI: HPI: Patient is a 76-year-old female who presents to the emergency department for right lower rib pain that started 2 days ago after she tripped while letting the dog out and fell onto her right rib. She denies hitting head, loss of consciousness, nausea, vomiting, diarrhea, abdominal pain, fevers. Patient has a history of conversion disorder with chronic back pain. She saw her doctor yesterday who gave her Percocet for her chronic back pain. She took 1 tablet yesterday but no medication today. Review of Systems: Review of Systems: Constitutional: See HPI HENT: See HPI Respiratory: See HPI GI: See HPI Musculoskeletal: See HPI Neurologic: See HPI Current Medications: Current Meds: Current Medications Medications (Trade) Dose Ordered Sig/Gena Start Time Stop Time Status Last Admin Dose Admin Oxycodone/ Acetaminophen (Percocet 5/325) 1 tab 1X ONCE 01/09/22 13:45 01/09/22 13:46 DC Allergies: Allergies: Allergies Coded Allergies Type Severity Reaction Last Updated Verified ceftriaxone Allergy Intermediate hives 01/09/22 Yes metronidazole Allergy Intermediate hives 01/09/22 Yes morphine Allergy Intermediate Rash 01/09/22 Yes fentanyl Allergy Unknown 01/09/22 Yes hydrocodone Allergy Unknown Hives 01/09/22 Yes Physical Exam: PE: Constitutional: Well developed, well nourished, no acute distress, non-toxic appearance. [] HENT: Normocephalic, atraumatic, bilateral external ears normal, oropharynx moist, no oral exudates, nose normal. [] Eyes: PERRL, EOMI, conjunctiva normal, no discharge. [] Neck: Normal range of motion, no tenderness, supple, no stridor. [] Cardiovascular:Heart rate regular rhythm, no murmur [] Lungs & Thorax: Bilateral breath sounds clear to auscultation, no flail segments, no ecchymosis, right anterior lower rib pain with palpation [] Abdomen: Bowel sounds normal, soft, no tenderness, no masses, no pulsatile masses. [] Skin: Warm, dry, no erythema, no rash. [] Back: No tenderness, no CVA tenderness. [] Extremities: No tenderness, no cyanosis, no clubbing, ROM intact, no edema. [] Neurologic: Alert and oriented X 3, normal motor function, normal sensory function, no focal deficits noted. [] Psychologic: Affect normal, judgement normal, mood normal. [] EKG: EKG: [] Radiology/Procedures: Radiology/Procedures: []PROCEDURE: RIBS RIGHT AND PA CHEST EXAM: XR RIBS MIN 3 VIEWS RT W/PA CHEST 01/09/2022 1:52 PM CLINICAL INDICATION: Fall, right rib pain COMPARISON: Right rib series radiograph 09/05/2021 TECHNIQUE: AP and oblique views of the right ribs. PA view of the chest FINDINGS: There is no displaced rib fracture. The heart is normal in size. Lungs are well-expanded and clear. No pleural effusion or pneumothorax. There is new bone cement in the T9 vertebral body. IMPRESSION: No acute right rib fracture. Electronically signed by: Nel Henson MD (01/09/2022 3:23 PM) [id number] DICTATED AND SIGNED BY: NEL HENSON MD DATE: 01/09/22 1521 CC: BRENDA SANCHEZ MD; HARSHA YARBROUGH APRN ~ Heart Score: C/O Chest Pain: N/A Risk Factors: Risk Factors: DM, Current or recent (<one month) smoker, HTN, HLP, family history of CAD, obesity. Risk Scores: Score 0 - 3: 2.5% MACE over next 6 weeks - Discharge Home Score 4 - 6: 20.3% MACE over next 6 weeks - Admit for Clinical Observation Score 7 - 10: 72.7% MACE over next 6 weeks - Early Invasive Strategies Course & Med Decision Making: Course & Med Decision Making Pertinent Labs and Imaging studies reviewed. (See chart for details) [] Patient presents to the emergency department for right lower anterior rib pain after falling onto it 2 days ago. Imaging was performed of ribs and chest that showed no acute fracture. Patient's pain was treated in the emergency department. Patient advised to continue taking her oxycodone that received from her primary care provider and apply ice. Advised to continue to take deep breaths. I discussed with patient all findings and diagnostic testing as well as the need to follow-up with PCP for further evaluation and treatment or return to the ER if any new or worsening symptoms. Strict return precautions were also discussed at length. Patient voiced understanding and agreement with the plan. Patient is hemodynamically stable at the time of disposition. Dragon Disclaimer: Dragon Disclaimer: This electronic medical record was generated, in whole or in part, using a voice recognition dictation system. Departure Departure: Impression: Primary Impression: Rib contusion Qualified Codes: S20.211A - Contusion of right front wall of thorax, initial encounter Disposition: HOME / SELF CARE / HOMELESS Condition: GOOD Referrals: BRENDA SANCHEZ MD (PCP) Patient Instructions: Rib Contusion Additional Instructions: You are seen in the emergency department today for right rib pain after a fall. Imaging was performed that showed no acute fracture. Please continue to take the pain medication that you were prescribed by your primary care provider. He can also apply ice to any sore areas. Ensure that you are taking deep breaths and not splinting to avoid developing lower lobe pneumonia. Follow-up with your primary care provider tomorrow regarding your ER visit. Return to the emergency department if you develop worsening of your pain, any new injuries, intractable nausea or vomiting, high fevers to treatment, chest pain, shortness of breath. HARSHA YARBROUGH BINDER SORTER Jan 09, 2022 13:55
--- NOTE | 2022-01-09 15:25 | RAD ---
EXAM: XR RIBS MIN 3 VIEWS RT W/PA CHEST 01/09/2022 1:52 PM CLINICAL INDICATION: Fall, right rib pain COMPARISON: Right rib series radiograph 09/05/2021 TECHNIQUE: AP and oblique views of the right ribs. PA view of the chest FINDINGS: There is no displaced rib fracture. The heart is normal in size. Lungs are well-expanded a nd clear. No pleural effusion or pneumothorax. There is new bone cement in the T9 vertebral body. IMPRESSION: No acute right rib fracture. Electronically signed by: Nel Henson MD (01/09/2022 3:23 PM) [id number]
[2022-01-09 15:45] VITALS: BP 156/67
== END 2022-01-09 15:45 | disposition home or self-care (01) ==
LOC: ER 13:13
DX: S20.211A Contusion of right front wall of thorax, initial encounter (principal); E78.00 Pure hypercholesterolemia, unspecified; I10 Essential (primary) hypertension; G89.29 Other chronic pain; Z88.8 Allergy status to other drugs, medicaments and biological substances; Z88.5 Allergy status to narcotic agent; W01.0XXA Fall on same level from slipping, tripping and stumbling without subsequent striking against object, initial encounter; Y93.89 Activity, other specified; Y92.89 Other specified places as the place of occurrence of the external cause; Y99.8 Other external cause status
CPT/HCPCS: 71101; 99284